=== PATIENT | male | born 1970 | race Caucasian/White ===

== ENCOUNTER 2020-02-11 20:32 | Inpatient (IN) | payer OTHER ==
[~2020-02-11] VITALS: Ht 180.3 cm; Wt 67.8 kg
[2020-02-11 21:21] LABS: HEMATOCRIT 35.9 % (42.0-52.0); HEMOGLOBIN 11.8 g/dl (13.5-17.5); MEAN CORPUSCULAR HEMOGLOBIN 32.3 pg (27.0-33.0); MEAN CORPUSCULAR HGB CONC 32.9 g/dl (32.0-36.5); MEAN CORPUSCULAR VOLUME 98.4 fl (80.0-96.0); PLATELET COUNT, AUTOMATED 143 10^3/uL (150-450); RED BLOOD COUNT 3.65 10^6/uL (4.30-6.10); WHITE BLOOD COUNT 12.3 10^3/uL (4.0-10.0)
[2020-02-11] MEDS ORDERED: ONDANSETRON 4MG/2ML VIAL IV PRN (21:45)
[2020-02-11] MEDS ORDERED: MORPHINE 2 MG/ML 1ML VIAL (J2270) IV PRN (21:45)
[2020-02-11] MEDS ORDERED: MOM 30ML SUSPENSION UDC PO PRN (21:45)
[2020-02-11] MEDS ORDERED: ACETAMINOPHEN TAB 650MG DOSE (2X325MG) PO PRN (21:45)
[2020-02-11] MEDS ORDERED: BISACODYL 10 MG SUPP PR PRN (21:45)
[2020-02-11 21:46] LABS: ALBUMIN 2.9 GM/DL (3.2-5.2); ALT/SGPT 100 U/L (12-78); BILIRUBIN,TOTAL 0.6 MG/DL (0.2-1.0); BLOOD UREA NITROGEN 19 MG/DL (7-18); CALCIUM LEVEL 8.5 MG/DL (8.5-10.1); CARBON DIOXIDE LEVEL 25 MEQ/L (21-32); CHLORIDE LEVEL 104 MEQ/L (98-107); CREATININE FOR GFR 1.07 MG/DL (0.70-1.30); GLOMERULAR FILTRATION RATE > 60.0 (>56); GLUCOSE, FASTING 88 MG/DL (70-100); POTASSIUM SERUM 3.9 MEQ/L (3.5-5.1); SODIUM LEVEL 132 MEQ/L (136-145); TOTAL PROTEIN 6.2 GM/DL (6.4-8.2)
--- NOTE | 2020-02-11 21:47 | REPVR ---
PROCEDURE INFORMATION: Exam: XR Right Hand Exam date and time: 02/11/2020 9:03 PM Age: 50 years old Clinical indication: Pain; Hand; Right; Additional info: Swelling TECHNIQUE: Imaging protocol: XR Right hand. Views: 3 or more views. COMPARISON: No relevant prior studies available. FINDINGS: Bones/joints: No fracture or bone lesions. Joint spaces are unremarkable. Soft tissues: Generalized soft tissue swelling in the hand. No subcutaneous gas is seen. Nonspecific calcifications are noted in the soft tissues adjacent to the little finger metacarpal. IMPRESSION: 1. Soft tissue swelling of uncertain etiology. Nonspecific calcifications in the medial hand adjacent to the 5th metacarpal. 2. No fracture or malalignment. Electronically signed by: Carmine Ovalle On 02/11/2020 21:47:31 PM
--- NOTE | 2020-02-11 21:48 | REPVR ---
PROCEDURE INFORMATION: Exam: XR Right Forearm Exam date and time: 02/11/2020 9:03 PM Age: 50 years old Clinical indication: Injury or trauma; Swelling (edema); Arm, upper and hand; Right TECHNIQUE: Imaging protocol: XR Right forearm. Views: 2 views. COMPARISON: No relevant prior studies available. FINDINGS: Bones/joints: Normal. Soft tissues: Mild soft tissue swelling in the forearm and hand. No subcutaneous gas or foreign bodies. Nonspecific soft tissue calcifications in the hand adjacent to the 5th metacarpal. IMPRESSION: 1. No fracture or malalignment. 2. Nonspecific soft tissue swelling in the hand and forearm. Electronically signed by: Carmine Ovalle On 02/11/2020 21:48:48 PM
[2020-02-11] MEDS ORDERED: LIDOCAINE 2% 100MG/5ML SDV (FOR ANES.) As Ordered ONE (22:00)
[2020-02-11] MEDS ORDERED: propofoL 200 MG/20 ML VIAL As Ordered ONE (22:00)
[2020-02-11] MEDS ORDERED: fentaNYL 100 MCG/2 ML INJECTION (J3010) As Ordered ONE (22:00)
[2020-02-11] MEDS ORDERED: dexameTHASONE 4 MG/ML 1ML VIAL (J1100 PER 1MG) As Ordered ONE (22:01)
[2020-02-11] MEDS ORDERED: MIDAZOLAM INJ 2MG/2ML VIAL (J2250 PER 1MG) As Ordered ONE (22:01)
[2020-02-11] MEDS ORDERED: ONDANSETRON 4MG/2ML VIAL As Ordered ONE (22:01)
[2020-02-11] MEDS ORDERED: ACET-897 PO (22:09)
[2020-02-11 22:11] LABS: ERYTHROCYTE SEDIMENTATION RATE 37 mm/hr (0-20)
--- NOTE | 2020-02-11 22:20 | CR.PDOC ---
General Date of Consultation: Feb 11, 2020 Consultation Chief complaint: Presented to the ER with right arm pain History of present illness: Patient is a 50 year old male with a PMHx of Bipolar disorder / Insomnia, Recent IVDA who presented to the ER with R forearm pain. He reported that he has been abstinent of any drug use for the last 8 years. However, 2 days ago had injected IV MDMA into his arm. Patient reported that he did inject into a vein. . He reported that there was swelling instantly and 1 day after began to have redness, blistering and fevers and chills. Patient reported that his fever was as high as 103 Fahrenheit. Yesterday. Patient had lost the ability to move his fingers and lost sensation from his elbow down. Patient denies any headache, nausea, vomiting, chest pain, shortness breath, palpitations, abdominal pain consultation, diarrhea, or urinary discomfort. Past Medical History: Bipolar disorder / Insomnia, Recent IVDA Past Surgical History: Broken jaw approximately 20 years ago that was wired shut Allergies: See below Medications: See below Family History: - Reviewed and noncontributory Social History: - Patient reports that he is a smoker of 30 years at one [facility], patient uses a lcohol socially. 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 Review of Systems: 10 point review of systems complete, all negative otherwise stated in HPI Physical exam: - Vitals: BP [100/52], HR [84], RR [18], Sat [97%RA], Temp [99.5F] - General: Stenting of the side bed with his right arm above his head, does not appear to be in any distress, AAOx3 - HEENT: NC, AT, PERRLA - CVS: RRR, +S1S2, - Murmurs / rubs / gallops - Lungs: Fair air entry bilaterally, No appreciable wheezing / rales / rhonchi - Abdomen: Soft, Non-distended, Non-tender - Extremities: No lower extremity edema, No calf tenderness - Neuro: No focal motor or sensory deficit - Skin: R forearm with swelling, tense skin, erythema / warmth / blistering Labs: See below Imaging: XR R forearm 02/10: 1. No fracture or malalignment. 2. Nonspecific soft tissue swelling in the hand and forearm. XR R hand 02/10: 1. Soft tissue swelling of uncertain etiology. Nonspecific calcifications in the medial hand adjacent to the 5th metacarpal. 2. No fracture or malalignment. EKG: See below Assessment and Plan: Compartment syndrome / Cellulitis of R arm - likely 2/2 IVDA 2/2 MDMA - Patient presented to the ER with worsening right arm pain, after IV drug abuse 2 days prior - Patient is hemodynamically stable and afebrile - Physical reveals erythema, warmth, blistering and tense skin of his right forearm - Leukocytosis / Elevated CRP - Imaging noted above - Will check ESR / Lactic acid / Blood cultures / Procalcitonin - Orthopedic surgery has started vancomycin - Patient has been admitted to the orthopedic service for further management; will be taken to OR tonight IVDA / Fevers - Will check Blood cultures / ESR / CRP / Procalcitonin - Will check ECHO Macrocytic anemia - No evidence of bleeding - Will check B12 / Folate / Reticulocyte count Hyponatremia - likely 2/2 hypotonic etiology; possibly 2/2 hypovolemic etiology - Will check urine / serum osmolality, urine electrolytes - Will c/w IV fluid hydration - Repeat BMP at 2AM Transaminitis - Patient has a recent use of IVDA and a prior history of IVDA - Will check Hepatitis profile / HIV Bipolar disorder / Insomnia - Currently does not take any medications - Prior history of Risperidone / Trazadone use DVT prophylaxis - As per orthopedic surgery Vital Signs/I&O Vital Signs Date Time Temp Pulse Resp B/P (MAP) Pulse Ox O2 Delivery O2 Flow Rate FiO2 02/11/20 20:55 84 16 98 02/11/20 20:45 99.5 100/52 (68) Room Air Laboratory Data Labs 24H Laboratory Tests 2 02/11/20 21:00: Nucleated Red Blood Cells % (auto) 0.0, Erythrocyte Sedimentation Rate 37H, Anion Gap 3L, Glomerular Filtration Rate > 60.0, Calcium Level 8.5, Total Bilirubin 0.6, Aspartate Amino Transf (AST/SGOT) 95H, Alanine Aminotransferase (ALT/SGPT) 100H, Alkaline Phosphatase 71, C-Reactive Protein, Quantitative 15.40H, Total Protein 6.2L, Albumin 2.9L, Albumin/Globulin Ratio 0.9, Coronavirus (COVID-19)(PCR) NEGATIVE CBC/BMP Laboratory Tests 02/11/20 21:00 Microbiology Microbiology 02/11/20 Blood Culture, Received Pending Allergies Coded Allergies: Penicillins (Verified Allergy, Severe, 02/11/20) Home Medications Scheduled PRN Acetaminophen (Tylenol Extra Strength) 500 Mg Tablet, 1,000 MG PO Q6H PRN for PAIN / FEVER, (Reported) FRANTZ BRAVO MD Feb 11, 2020 22:20
[2020-02-11] MEDS ORDERED: ROCURONIUM BROMIDE 50 MG/5 ML VIAL As Ordered ONE (22:55)
[2020-02-11] MEDS ORDERED: VANCOMYCIN HCL 1,000 MG, VIAL MATE ADAPTER 1 EACH in D5W 250 ML IV ONE (23:00)
[2020-02-11] MEDS ORDERED: PHENYLephrine HCL 500 MCG/5 ML (100MCG/ML) SYRINGE (J2370) As Ordered ONE (23:08)
[2020-02-11] MEDS ORDERED: VANCOMYCIN 1000MG/20ML VIAL As Ordered ONE (23:11)
[2020-02-11 23:16] LABS: OSMOLALITY SERUM 277 MOSM/KG (275-295)
[2020-02-11 23:17] LABS: BASO % 0.2 % (0.0-1.0); EOS # 0.3 10^3/uL (0.0-0.5); EOS % 2.1 % (0.0-3.0); LYMPH # 1.5 10^3/uL (1.5-5.0); LYMPH % 11.6 % (24.0-44.0); MONO # 0.8 10^3/uL (0.0-0.8); MONO % 6.5 % (0.0-5.0); NEUTROPHILS # 10.2 10^3/uL (1.5-8.5); NEUTROPHILS % 79.1 % (36.0-66.0); WHITE BLOOD COUNT 12.9 10^3/uL (4.0-10.0)
[2020-02-11] MEDS ORDERED: HYDROmorphone HCL 2 MG/ML 1ML VIAL (J1170) As Ordered ONE (23:19)
[2020-02-11 23:29] LABS: THYROID STIMULATING HORMONE 0.873 uIU/ML (0.358-3.740)
[2020-02-12] VITALS (8 sets, daily range): BP systolic 100–115; BP diastolic 59–74
[2020-02-12] MEDS ORDERED: VANCOMYCIN HCL 500 MG in D5W MINI-BAG PLUS 100 ML IV ONE ×2
[2020-02-12] MEDS ORDERED: ACETAMINOPHEN 1000MG 100ML IV BTL (OFIRMEV) (J0131 PER 10MG) As Ordered ONE (00:10)
[2020-02-12] MEDS ORDERED: KETOROLAC 60MG 2ML VIAL As Ordered ONE (00:11)
[2020-02-12] MEDS ORDERED: NEOSTIGMINE 10MG/10ML VIAL (J2710 PER 0.5MG) As Ordered ONE (00:15)
[2020-02-12] MEDS ORDERED: GLYCOPYRROLATE INJ 0.2 MG/ML 2 ML VIAL As Ordered ONE (00:15)
[2020-02-12] MEDS ORDERED: VANCOMYCIN 500MG/10ML VIAL As Ordered ONE (00:19)
[2020-02-12] MEDS ORDERED: fentaNYL 100 MCG/2 ML INJECTION (J3010) As Ordered ONE (01:00)
[2020-02-12] MEDS ORDERED: fentaNYL 100 MCG/2 ML INJECTION (J3010) IV PRN (01:30)
[2020-02-12] MEDS ORDERED: ONDANSETRON 4MG/2ML VIAL IV PRN (01:30)
[2020-02-12] MEDS ORDERED: LR 1,000 ML IV SCH (01:30)
[2020-02-12] MEDS ORDERED: oxyCODONE 5MG TAB PO PRN (01:30)
[2020-02-12] MEDS ORDERED: HYDROMORPHONE HCL 0.5 MG/ 0.5 ML SYRINGE (J1170 PER 1) As Ordered ONE (01:33)
[2020-02-12] MEDS ORDERED: oxyCODONE 5MG TAB As Ordered ONE (01:33)
[2020-02-12] MEDS: HYDROMORPHONE HCL 0.5 MG/ 0.5 ML SYRINGE (J1170 PER 1) IV PRN ×2 (01:37→01:43)
[2020-02-12] MEDS: NS 1,000 ML IV SCH ×3 (02:25→04:59)
[2020-02-12 03:12] LABS: BLOOD UREA NITROGEN 18 MG/DL (7-18); CALCIUM LEVEL 7.8 MG/DL (8.5-10.1); CARBON DIOXIDE LEVEL 24 MEQ/L (21-32); CHLORIDE LEVEL 105 MEQ/L (98-107); CREATININE FOR GFR 0.93 MG/DL (0.70-1.30); GLOMERULAR FILTRATION RATE > 60.0 (>56); GLUCOSE, FASTING 136 MG/DL (70-100); POTASSIUM SERUM 4.2 MEQ/L (3.5-5.1); SODIUM LEVEL 135 MEQ/L (136-145)
[2020-02-12] MEDS: NORCO, ANEXSIA 5/325MG TABLET (HYDROcodone/ACETAMINOPHEN) PO PRN ×2 (05:00→11:00)
--- NOTE | 2020-02-12 08:08 | HPE ---
HISTORY AND PHYSICAL DATE OF ADMISSION: 02/11/2020 CHIEF COMPLAINT: Right hand and forearm swelling. HISTORY OF PRESENT ILLNESS: This 50-year-old male was injecting some MDMA/Yolis into his right hand about two days ago and now appeared he unfortunately broke up with his girlfriend. He has used IV drugs in the past, but apparently he says he was clean for many years prior to this. He has 10/10 pain to his right hand and forearm. There is swelling and redness there that is getting worse over time. He said he has diminished sensation throughout the entire hand. He has had fever, chills, and did get some shortness of breath when his hand was really bothering him. No chest pain or other symptoms. PAST MEDICAL HISTORY: Bipolar. MEDICATIONS: None. He was on risperidone, but he is not taking that now. ALLERGIES: PENICILLIN. PAST SURGICAL HISTORY: None. SOCIAL HISTORY: He lives in [place]. 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 He is right hand dominant. He smokes a pack of cigarettes a day. He does not use alcohol. PHYSICAL EXAMINATION: GENERAL: A 60-year-old man. He appears obviously uncomfortable. He is slightly unkempt. VITAL SIGNS: Reveal temperature 99.5, blood pressure 100/52, 97% on room air, pulse rate 84, respiratory rate 18. EXTREMITIES: He has obvious swelling to the right hand primarily severe swelling in the hand, as well as [id number] swelling of the forearm compartments. Compartments are extremely tight in the hand. [id number] tight in the forearm, especially on the volar side. There is redness and warmth moderately throughout the hand and forearm. There is definite pain on passive outstretch. He has moderately strong radial pulse. There is pain to palpation of the compartments both in the hand primarily on the dorsum of the hand, as well as the forearm. The elbow has full range of motion. Diminished sensation throughout the entire hand subjectively. No obvious other red, swollen, or hot joints. He appears quite uncomfortable. IMAGING: Radiographs were taken of the right hand AP, lateral, and two obliques. These show moderate soft tissue swelling and no fracture. Radiographs taken of the forearm AP and lateral. There does appear to be some soft tissue possibly swelling on the volar side of the forearm, but no fracture. LABORATORY DATA: Reveals CRP 15.4. WBC count 12.3. ESR 37. COVID is negative. ASSESSMENT: This 50-year-old man appears to have an acute compartment syndrome of his right hand and possibly the forearm due to intravenous (IV) injection drug use and likely infection and concomitant cellulitis. We discussed the pros, cons, risks, and benefits of an acute compartment forearm fasciotomy, as well as hand fasciotomies. The surgical risks include, but are not limited to infection, pain, damage to surrounding structures, neurovascular injury, need for skin grafting, anesthetic complications, blood clots, , and other risks, as well as the need for further surgery. The risks of not going ahead with surgery include, but are not limited to muscle damage, muscle necrosis, worsening or spreading of the infection, developing sepsis, as well as Volkmann contracture. He wished to go ahead with the surgery. Marked the right upper extremity and signed the consent form for surgery, as well as possible need for blood products, and I explained the pros, cons, risks, and benefits of that to him as well. I will admit him to the hospital, as well as ask the emergency department physician to obtain a stat medicine consult. I have made the operating room (OR) aware of the emergency nature of the case. The patient will remain n.p.o., and I have also gone ahead and ordered vancomycin intravenous (IV) and await the appropriate dose to be dosed by the pharmacy for treatment in case of infection, which tends to be a methicillin-resistant Staphylococcus aureus in this group.
[2020-02-12] MEDS ORDERED: NICOTINE 21MG/24HR 1 EA TRANSDERMAL TD SCH (09:00)
[2020-02-12] MEDS ORDERED: INFLUENZA QUADRIVALENT PF VACCINE 0.5ML SYRINGE IM ONE (09:00)
[2020-02-12 10:47] LABS: CORTISOL PM 10.5 UG/DL (3.1-16.7)
[2020-02-12 10:49] LABS: VITAMIN B12 LEVEL 412 PG/ML (247-911)
[2020-02-12 10:59] LABS: HEPATITIS B SURFACE ANTIGEN NEGATIVE (NEGATIVE)
[2020-02-12] MEDS ORDERED: VANCOMYCIN HCL 1,000 MG, VIAL MATE ADAPTER 1 EACH in D5W 250 ML IV SCH (11:00)
[2020-02-12 11:27] LABS: HEPATITIS B CORE ANTIBODY IGM NEGATIVE (NEGATIVE)
[2020-02-12 11:28] LABS: HIV 1&2 SCREEN CENTAUR NEGATIVE (NEGATIVE)
[2020-02-12 11:29] LABS: HEPATITIS A ANTIBODY IGM NEGATIVE (NEGATIVE)
[2020-02-12 11:33] LABS: HEPATITIS C VIRUS ABY INDEX > 11.0 INDEX (<0.8)
--- NOTE | 2020-02-12 14:28 | IPNPDOC ---
Text Note Date of Service The patient was seen on 02/12/20. NOTE Subjective: No any acute events overnight. Patient denies fever, chills, nausea, chest pain, palpitations, vomiting or dysuria Objective: GENERAL APPEARANCE: NAD HEENT: no scleral icterus, no JVD, EOMI CARDIOVASCULAR: S1S2 LUNGS: CTA ABDOMEN: soft & not tender w palpitation MUSCULOSKELETAL: Right forearm covered with dressing INTEGUMENT: no generalized palor NEUROLOGICAL: cranial nerve function from 2-12 intact intact, follows commands, speech not dysarthric Assessment and plan This 50-year-old man with past medical history of IV drug abuse and bipolar disorder presented to the hospital with acute compartment syndrome of his right hand and possibly the forearm due to intravenous (IV) injection drug use and likely infection and concomitant cellulitis. Dr Thakur performed acute compartment forearm fasciotomy and hand fasciotomies Assessment and Plan: Compartment syndrome / Cellulitis of R arm - likely 2/2 IVDA 2/2 MDMA forearm fasciotomy and hand fasciotomies was done on 02/12/20 Await blood culture, wound culture Continue vancomycin normocytic anemia Most likely secondary to anemia of chronic diseases B12, folate within normal limit Patient need workup in the outpatient settings Hyponatremia Resolved Transaminitis Most likely secondary to hepatitis C untreated Follow-up with ID in the outpatient settings Bipolar disorder / Insomnia Follow-up with psychiatrist in the outpatient settings VSKadeem, I+O VSKadeem, I+O Laboratory Tests 02/11/20 21:00 02/11/20 22:30 02/12/20 01:55 Vital Signs Date Time Temp Pulse Resp B/P (MAP) Pulse Ox O2 Delivery O2 Flow Rate FiO2 02/12/20 11:45 16 02/12/20 06:00 98.6 75 100/59 (73) 98 Room Air 02/12/20 01:05 3 I&O- Last 24 Hours up to 6 AM 02/12/20 05:59 Intake Total 1520 ml Balance 1520 ml MARIA T LESTER DO Feb 12, 2020 14:28
--- NOTE | 2020-02-12 15:56 | RO ---
OPERATIVE NOTE DATE OF OPERATION: 02/12/2020 PREOPERATIVE DIAGNOSIS: Right hand and forearm compartment syndrome. POSTOPERATIVE DIAGNOSIS: Right hand and forearm compartment syndrome. PLANNED PROCEDURE: Right hand and forearm fasciotomies and irrigation and debridement. PROCEDURE PERFORMED: Right hand and forearm fasciotomies and irrigation and debridement. SURGEON: Az Thakur MD ANESTHESIOLOGIST: Dr. Davis CLOSING COORDINATOR: None. ANESTHESIA: General anesthetic. OPERATIVE PREAMBLE: This is a 60-year-old man who injected IV drugs into his right hand two days ago. He presented with swelling and extreme pain to his right hand and forearm as well as redness progressing over time. He had an elevated white count and inflammatory markers. After discussing pros, cons, risks and benefits of surgery, he decided to go ahead with irrigation and debridement as well as forearm and hand fasciotomies given his acutely concerning history and physical exam findings. PROCEDURE NOTE: The patient was brought to the operating theater. He was administered general anesthetic. He was administered intravenous vancomycin both for treatment as well as surgical prophylaxis of infection. The limb was prepped and draped in the usual sterile fashion, allowing over three minutes prep solution drying time prior to draping. Chlorhexidine based prep solution was employed. A preoperative timeout was performed, confirming the site, the patient, and surgery. The bed was turned 90 degrees. A tourniquet was used on the patient's upper extremity. All bony prominences were appropriately padded. We began by elevating the limb and inflating the tourniquet to 250 mmHg. I made two standard longitudinal incisions centered around the dorsum of the hand between the subcutaneous border of the metacarpals longitudinally. We carried dissection down through skin and subcutaneous tissue, achieving meticulous hemostasis. I performed a fasciotomy compartmental base of all the muscles of the interosseous muscles of the hand through the plantar. There was no obvious pus collection although there was some minor amounts of fluid and murky tissue slightly off-white leyva appearing in that area. Wound swabs were taken and sent for gram stain, C&S, aerobes, anaerobes and cultures of ____. I thoroughly decompressed the tissue from the dorsum of the wrist and towards the thumb as well. There was one area in the radial styloid that appears to be more superficial ____ was decompressed as well and no obvious pocket of pus or fluid collection. I then turned my attention to the volar forearm. I performed a fasciotomy including a carpal tunnel release through a standard volar approach through the long standard longitudinal incision, curvilinear, ensuring a soft tissue swath to cover the flexor tendons, the median nerve as well as towards the proximal medial aspect of the forearm near the lacertus fibrosus. Again near the distal radial side of the incision, there was again some slightly off-white grayish tissue that was gently debrided. The radial artery was kept intact throughout the case. Superficial and deep fasciotomy was performed. Forearm bumps were soft as well as the hand compartments. In addition, the hand compartments of the thenar heads and thenar eminence were also soft after performing the fasciotomies. I then thoroughly irrigated with six liters of normal saline with a gentle debridement. No obvious muscle was found. Proximal and distal ends of the volar forearm fasciotomy incision were closed using interrupted 2-0 Vicryl sutures and 3-0 Ethilon in a horizontal mattress fashion. These were each closed for a length of approximately 1-1/2 inches. A large majority of the incisions were left open and a vacuum dressing placed with appropriate suction with 25 mm low continuous suction applied with ensuring the ___ dressing was not overlapping on the dorsum of the forearm. Dorsal hand wounds were left open with wet-to-dry dressing to allow it to drain. The tourniquet was taken down prior to the end of the case to confirm meticulous hemostasis. Drapes were removed. The patient was woken up from his anesthetic, transferred off the operating table and taken to the postanesthetic care unit in stable condition. All sponge, needle, and instrument counts were correct. Estimated blood loss: 50 cc. No complications. Plan for the patient is to be admitted to the hospital for hospitalist consult and consult for infectious disease, follow up on the cultures, daily blood work, follow the inflammatory markers to ensure he has appropriate response to the antibiotics. The patient will likely need to return to the OR in 2-3 days for definitive wound closure versus plastic surgery consult for a split-thickness skin graft although in my opinion, I think that this will allow for delayed primary closure rather than skin grafting. ____ admitted to the hospital.
--- NOTE | 2020-02-12 17:06 | CR ---
Infectious Disease CONSULTATION Asked to consult by orthopedic surgery for evaluation of right hand abscess with compartment syndrome of the right forearm. HPI: Patient is a 50-year-old gentleman with a history of intravenous (IV) drug use who recently injected about 4 days prior to admission Yolis into his right hand. The patient said he broke up with his girlfriend, who stayed in [place], where they had been for the past year, and he moved back to [place], [place]. He is staying in a motel with his sister. The patient reported that he injected in his right hand and developed severe swelling with fever up to 103.4 and chills. He has blistering lesions on the hand. He denies any nausea, vomiting, diarrhea, chest pain, shortness of breath, palpitations. He is sure that whoever sold him the drug, that he had it tainted with something so he could kill him. He wants me to check his urine drug screen for any illegal drugs that could be possibly there. MEDICAL HISTORY: Significant for: 1. Bipolar disorder with insomnia. 2. IV drug abuse. He had been abstinent for about 8 years until this past week. 3. Chronic hepatitis C diagnosed in 2005 or 2006 while he was in nursing home. He was never treated, because he stated that it was too expensive. Vaccinated for HepA/B SURGICAL HISTORY: Broken jaw 20 years ago. SOCIAL HISTORY: He is a smoker, 30 pack-year. Uses alcohol socially. He used to drink heavily. History of IV Yolis use, marijuana. He was in [place] and recently moved back. He has a girlfriend who now is in [place]. LABORATORY DATA: White count 12.9, hemoglobin 11.8, hematocrit 35.9, platelets 143, 74% neutrophils, 7% lymphocytes, 6% monocytes. ESR 37. Sodium 135, potassium 4.2, chloride 105, bicarbonate 24, BUN 18, creatinine 0.93, glucose 136, calcium 7.8. AST 95, ALT 100, alkaline phosphatase 71. CRP 15.4. Total protein 6.2, albumin 2.9. Vitamin B12 of 412. Folate 12. Procalcitonin 1.39. TSH 0.873. Cortisol 10.5. HIV negative. Hepatitis C positive. Hepatitis A negative. Hepatitis B surface antigen negative. B core IgM negative. Microbiology: Blood culture was not done. Right arm Gram stain: No growth. No cells seen. A few gram-positive rods. Culture are still pending, aerobic and anaerobic. ALLERGIES: PENICILLIN. MEDICATIONS: - vancomycin 1 gram IV every 12 hours - nicotine patch daily - Zofran as needed 4 mg every 6 - Tylenol as needed - morphine 2 mg IV every 4 as needed - [place] one tablet by mouth every 6 as needed IMAGING: Hand x-ray done on February 10 shows soft tissue swelling of uncertain etiology with nonspecific calcification in the medial hand adjacent to the 5th metacarpal. PHYSICAL EXAMINATION: A healthy looking gentleman in no acute distress. HEART: Normal S1, S2. No murmurs, rubs, or gallops appreciated. LUNGS: Clear. No wheezes, rales, rhonchi. ABDOMEN: Soft, nontender. No hepatosplenomegaly. BACK: No cerebrovascular accident (CVA) or lumbosacral tenderness. EXTREMITIES: No clubbing, cyanosis, or edema. SKIN: Multiple tattoos all over his body. Blue dye discoloration on his fingers. 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 MUSCULOSKELETAL: Right hand with two vertical scars on the dorsal aspect of the hand that are clean with no purulent discharge. Wound vacuum-assisted closure (VAC) along the right forearm. Incision done for concern of compartment syndrome. Fasciotomy incision. Per review of Dr. Thakur's surgical note, there was no obvious purulence intraoperatively. There was a minor amount of milky tissue, leyva appearing along the muscles. IMPRESSION: A 50-year-old gentleman with a history of IV drug use, chronic hepatitis C, untreated, who was admitted with right hand abscess with concern of compartment syndrome. The patient had an I and D done. Cultures are still pending. Gram stain shows gram-positive rods. Patient is allergic to penicillin. He has been treated with vancomycin, which would cover gram-positive rods. The most common cause for those infections are Staphylococcus aureus or possibly polymicrobial. PLAN: 1-Continue with IV vancomycin. Patient has clinically improved. He is afebrile. Will monitor his culture results and decide on de-escalation depending on culture results. Continue with wound VAC. Will discuss the case with Dr. Thakur tomorrow. 2- As far as hepatitis C is concerned, he can be treated as an outpatient once he remains abstinent of alcohol and drugs. He has been vaccinated for hepatitis A and B while in nursing home MTDD
--- NOTE | 2020-02-13 07:05 | ECHO ---
DATE OF PROCEDURE: 02/12/2020 Age: 50 Gender: Male Height: 180 cm Weight: 68 kg REFERRING PHYSICIANS: Az Thakur MD and Seda Hill M.D. INDICATION: Sepsis. MEASUREMENTS: IVS 0.6 cm LV 5.4 cm LVPW 1.0 cm LA 3.0 cm Aorta 3.3 cm RV 3.4 cm IVC 1.8 cm Mitral E wave velocity 75 cm/s Mitral A wave 50.1 cm/s E prime septal 12.2 cm/s E prime lateral 14.6 cm/s FINDINGS: This study is of excellent technical quality. Underlying sinus rhythm. Left ventricle is normal size and normal systolic function, I estimate overall LVEF around 50% to 55%. No segmental wall motion abnormalities are noted. Right ventricle is also normal size and systolic function. Both atria appear normal. Aorta, tricuspid, and pulmonic valves were all well seen and appear normal. Mitral valve has two leaflets, which have normal structure. There is a loose cord attached to the anterior mitral leaflet. It was well visualized and it is unlikely to represent vegetation. No pericardial effusion is noted. Inferior vena cava is normal size. Aortic root and aortic arch appear normal. Abdominal aorta was also reasonably well seen and appeared normal. Doppler interrogation reveals competent aortic valve. There is trace mitral and trace tricuspid insufficiency. Pulmonic valve is competent. Estimated pulmonary artery pressure is around 25 mmHg corresponding to normal values. Mitral inflow pattern and tissue Doppler imaging of mitral annulus revealed a normal diastolic function. CONCLUSIONS: 1. Study is of excellent technical quality, underlying sinus rhythm. 2. Normal left ventricular (LV) size with low normal left ventricular (LV) systolic function and normal diastolic function. 3. Normal aortic, tricuspid, and pulmonic valves. 4. Echo density attached to anterior mitral leaflet, which very likely represents a loose cord, unlikely representing vegetation. Trace mitral insufficiency. 5. Normal central venous pressure and normal pulmonary artery pressure. COMMENTS: If very high clinical suspicion for endocarditis, a transesophageal echocardiogram is going to provide better visualization. [facility]
== END 2020-02-12 22:20 | disposition left against medical advice (07) | DRG 316 ==
LOC: M ED 20:32 → M ED INP 21:44 → M MS5PR 02-12 02:00
PROVIDERS: ADMIT Orthopaedic Surgery Sports Medicine; ATTEND Orthopaedic Surgery Sports Medicine
PROC: 0KN90ZZ Release Right Lower Arm and Wrist Muscle, Open Approach (ICD-10-PCS; principal; 2020-02-12)
PROC: 0KNC0ZZ Release Right Hand Muscle, Open Approach (ICD-10-PCS; 2020-02-12)
DX: M79.A11 Nontraumatic compartment syndrome of right upper extremity (principal); E87.1 Hypo-osmolality and hyponatremia; L03.115 Cellulitis of right lower limb; D64.9 Anemia, unspecified; R74.01 Elevation of levels of liver transaminase levels; B18.2 Chronic viral hepatitis C; D63.8 Anemia in other chronic diseases classified elsewhere; F17.210 Nicotine dependence, cigarettes, uncomplicated; F31.9 Bipolar disorder, unspecified; G47.00 Insomnia, unspecified; Z88.0 Allergy status to penicillin; Z20.828 Contact with and (suspected) exposure to other viral communicable diseases

== ENCOUNTER 2020-02-13 00:39 | Inpatient (IN) | payer OTHER ==
[~2020-02-13] VITALS: Ht 180.3 cm; Wt 68.0 kg
[~2020-02-13 00:39] MED LIST: ACET-897 PO
[2020-02-13] MEDS ORDERED: ACETAMINOPHEN TAB 650MG DOSE (2X325MG) PO PRN (02:45)
--- NOTE | 2020-02-13 02:56 | HPEPDOC ---
[facility] Medical History & Physical Date of Admission Feb 13, 2020 Date of Service: Feb 13, 2020 History and Physical Chief complaint: Presented to back to the ER on 02/11 after he had left the hospital that evening Had initially presented to the ER with right arm pain on 02/11/2020 History of present illness: Patient is a 50 year old male with a PMHx of Bipolar disorder / Insomnia, Recent IVDA who presented to the back to the ER for ongoing care of his R forearm. Patient had eloped from the hospital without informing staff and a code was called. Security had reported the patient had left the building with IV line in place. Police were called to evaluate patient during his recent IV drug abuse and IV line in place. Patient was found at [facility] looking for his girlfriend and was brought back to the emergency room. Patient denies any drug use since he has left the hospital. Patient reported that he had left the hospital to find his girlfriend, but was unsuccessful; but did speak with his sister. Patient was admitted on 02/10 for compartment syndrome of his right forearm after he had injected IV drugs (MDMA) into his right forearm on 02/08. Patient had received emergent right hand and forearm fasciotomies and irrigation and debridement with Dr. Thakur on the morning of 02/11. Currently patient denies any headache, nausea, vomiting, chest pain, shortness breath, palpitations, abdominal pain consultation, diarrhea, or urinary discomfort Past Medical History: Bipolar disorder / Insomnia, Recent IVDA Past Surgical History: Broken jaw approximately 20 years ago that was wired shut Allergies: See below Medications: See below Family History: - Reviewed and noncontributory Social History: - Patient reports that he is a smoker of 30 years at one [facility], patient uses alcohol socially. 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 Review of Systems: 10 point review of systems complete, all negative otherwise stated in HPI Physical exam: - Vitals: BP [114/62], HR [60], RR [14], Sat [98%RA], Temp [98.1F] - General: Lying in bed, No acute distress, Speaking in full sentences, AAOx3 - HEENT: NC, AT, PERRLA - CVS: RRR, +S1S2 - Lungs: Fair air entry bilaterally, No appreciable wheezing / rales / rhonchi - Abdomen: Soft, Non-distended, Non-tender - Extremities: R forearm with dressing in place, No lower extremity edema, No calf tenderness - Neuro: Patient is able to move his fingers of his R hand and reports improved sensation - Skin: Slight erythema of R forearm still present Labs: See below Imaging: See below EKG: See below Assessment and Plan: Compartment syndrome / Cellulitis of R arm - likely 2/2 IVDA 2/2 MDMA - s/p right hand and forearm fasciotomies with irrigation and debridement (02/11) with Dr. Thakur - Patient reports improvement of his right hand motion and sensation - Maintenance hemodynamically stable and afebrile - Will admit to hospitalist service; will consult ID and Orthopedic services - Blood cultures 02/10: No growth at 24 hours; Wound culture 02/11: Pending - Will repeat CBC / CMP / Lactic acid / Procalcitonin - Will resume Vancomycin - Will continue with wound vac on R forearm IVDA / Fevers - ECHO complete; report pending Macrocytic anemia - No evidence of bleeding - Vitamin B12 / Folate noted Hyponatremia - likely 2/2 hypotonic etiology; possibly 2/2 hypovolemic etiology - s/p IV fluid hydration - Will repeat labs Transaminitis - likely 2/2 hepatitis C - Patient has a recent use of IVDA and a prior history of IVDA - Will have outpatient follow up with ID Nicotine dependence - Will start Nicotine patch Bipolar disorder / Insomnia - Currently does not take any medications - Prior history of Risperidone / Trazadone use DVT prophylaxis - Will start TEDs/Sequentials Vital Signs Vital Signs Date Time Temp Pulse Resp B/P (MAP) Pulse Ox O2 Delivery O2 Flow Rate FiO2 02/13/20 02:15 60 14 114/62 (79) 98 Room Air 02/13/20 00:49 98.1 Laboratory Data Labs 24H Laboratory Tests 2 02/13/20 01:40: Coronavirus (COVID-19)(PCR) NEGATIVE Home Medications No Active Prescriptions or Reported Meds Allergies Coded Allergies: Penicillins (Verified Allergy, Severe, 02/11/20) FRANTZ BRAVO MD Feb 13, 2020 02:56
[2020-02-13] MEDS ORDERED: MOM 30ML SUSPENSION UDC PO PRN (03:00)
[2020-02-13] MEDS ORDERED: SENOKOT S TAB PO PRN (03:00)
[2020-02-13] MEDS ORDERED: NICOTINE 21MG/24HR 1 EA TRANSDERMAL TD ONE (03:00)
[2020-02-13 03:16] LABS: HEMATOCRIT 33.5 % (42.0-52.0); HEMOGLOBIN 10.8 g/dl (13.5-17.5); MEAN CORPUSCULAR HEMOGLOBIN 32.3 pg (27.0-33.0); MEAN CORPUSCULAR HGB CONC 32.2 g/dl (32.0-36.5); MEAN CORPUSCULAR VOLUME 100.3 fl (80.0-96.0); PLATELET COUNT, AUTOMATED 125 10^3/uL (150-450); RED BLOOD COUNT 3.34 10^6/uL (4.30-6.10); WHITE BLOOD COUNT 8.2 10^3/uL (4.0-10.0)
[2020-02-13 03:20] VITALS: BP 114/63
[2020-02-13] MEDS ORDERED: MORPHINE 2 MG/ML 1ML VIAL (J2270) IV ONE (04:00)
[2020-02-13 04:09] LABS: ALBUMIN 2.5 GM/DL (3.2-5.2); ALT/SGPT 84 U/L (12-78); BILIRUBIN,TOTAL 0.1 MG/DL (0.2-1.0); BLOOD UREA NITROGEN 16 MG/DL (7-18); CARBON DIOXIDE LEVEL 29 MEQ/L (21-32); CHLORIDE LEVEL 108 MEQ/L (98-107); CREATININE FOR GFR 0.77 MG/DL (0.70-1.30); GLOMERULAR FILTRATION RATE > 60.0 (>56); GLUCOSE, FASTING 115 MG/DL (70-100); POTASSIUM SERUM 3.5 MEQ/L (3.5-5.1); SODIUM LEVEL 139 MEQ/L (136-145)
[2020-02-13] MEDS: VANCOMYCIN HCL 1,000 MG, VIAL MATE ADAPTER 1 EACH in D5W 250 ML IV SCH ×3 (04:43→20:20)
[2020-02-13 06:00] VITALS: BP 118/61
[2020-02-13] MEDS ORDERED: MORPHINE 15 MG SA TAB PO ONE (06:15)
[2020-02-13] MEDS: PERCOCET 5MG/325MG TAB PO PRN ×3 (06:50→23:44)
[2020-02-13] MEDS ORDERED: LORazepam 2 MG/ML VIAL IV ONE (07:45)
[2020-02-13] MEDS ORDERED: OLANZapine 5 MG TAB PO PRN (13:45)
[2020-02-13 14:00] VITALS: BP 119/62
[2020-02-13] MEDS ORDERED: LORazepam 2 MG/ML VIAL IV PRN (14:00)
--- NOTE | 2020-02-13 14:27 | IPNPDOC ---
Text Note Date of Service The patient was seen on 02/13/20. NOTE Subjective: Patient left the facility overnight AGAINST MEDICAL ADVICE and came back a few hours. In the morning patient was agree to stay in the hospital and get treatment. Objective: GENERAL APPEARANCE: NAD HEENT: no scleral icterus, no JVD, EOMI CARDIOVASCULAR: S1S2 LUNGS: CTA ABDOMEN: soft & not tender w palpitation MUSCULOSKELETAL: no cyanosis, no swelling, wound vac in place, R forearm with dressing in place INTEGUMENT: no generalized palor NEUROLOGICAL: cranial nerve function from 2-12 intact intact, follows commands, speech not dysarthric Psych: Patient has some racing thoughts and pressured speech. Assessment and plan Patient is 50 years old male with past medical history of Bipolar disorder / Insomnia, Recent IVDA who presented to the back to the ER for ongoing care of his R forearm. Patient was admitted on 02/10 for compartment syndrome of his right forearm after he had injected IV drugs (MDMA) into his right forearm on 02/08. Patient had received emergent right hand and forearm fasciotomies and irrigation and debridement with Dr. Thakur on the morning of 02/11. Compartment syndrome / Cellulitis of R arm - likely 04/13 IVDA 04/13 MDMA Blood culture negative Await wound culture Continue vancomycin continue with wound vac on R forearm IVDA / Fevers Await echo report Bipolar disorder Appreciate/agree with psychiatrist consult. Dr. Stack recommended olanzapine 3 times a day when necessary for agitation Hyponatremia Resolved Transaminitis Secondary to hepatitis C Follow-up with ID for possible treatment Nicotine dependence Nicotine patch VS,Fishbone, I+O VS, Fishbone, I+O Laboratory Tests 02/13/20 02:44 Vital Signs Date Time Temp Pulse Resp B/P (MAP) Pulse Ox O2 Delivery O2 Flow Rate FiO2 02/13/20 07:39 20 02/13/20 06:50 99.2 02/13/20 06:00 74 118/61 (80) 94 Room Air I&O- Last 24 Hours up to 6 AM 02/13/20 06:00 Intake Total 0 ml Output Total 0 ml Balance 0 ml MARIA T LESTER DO Feb 13, 2020 14:27
--- NOTE | 2020-02-13 17:31 | IPN ---
PROGRESS NOTE DATE: 02/13/2020 Teo is doing well. He left yesterday against medical advice. Went to [place] and came back after he had removed his wound vacuum-assisted closure (VAC). The patient wanted to see if his significant other had come back from [place]. She did not come back, and the patient came back to get his care. This morning he was seen by Dr. Thakur, who is planning to take him back to the operating room (OR) on Sunday or Sunday for closure of the forearm wound. Temperature was 100.2 this morning, currently 99.2, pulse 74, respirations 22, blood pressure 118/61, oxygen saturation 94% on room air. HEART: Normal S1, S2. No murmurs. LUNGS: Clear. No wheezes, rhonchi or rales. ABDOMEN: Soft, nontender LABORATORY DATA: White count 8.2, hemoglobin 10.8, hematocrit 33.5, platelets 125. Sodium 139, potassium 3.5, chloride 108, bicarbonate 29, BUN 16, creatinine 0.77, glucose 115. AST 62, ALT 84, total protein 6, albumin 2.5, and procalcitonin 0.57. Wound cultures, aerobic and anaerobic, are still pending. Blood cultures from February 10 were negative. Hepatitis C antibody was more than 11. SARS-CoV-2 was done on February 10 and February 12 and were negative. HIV negative. Hepatitis C RNA pending. On physical exam, right hand swelling has diminished. The wound VAC was not removed at the request of Dr. Thakur. He has good range of motion. Swelling in the forearm has decreased. IMPRESSION: 1. Right hand abscess. Culture is still pending with concern of compartment syndrome. The swelling has markedly decreased after fasciotomy. On intravenous (IV) vancomycin. 2. History of IV drug use, methamphetamine. 3. Chronic hepatitis C, not treated. Patient has been vaccinated for hepatitis A and B. AST and ALT less than two times upper limit of normal. PLAN: Continue with IV vancomycin. Call me with results of cultures when available to de-escalate therapy. Will treat him as an outpatient for hepatitis C. I agree with closure of the forearm wound once patient's swelling has decreased.
[2020-02-13] MEDS ORDERED: guaiFENesin DM LIQ 10ML UD PO PRN (18:30)
[2020-02-13 22:00] VITALS: BP 124/63
[2020-02-13] MEDS ORDERED: VANCOMYCIN HCL 750 MG, VIAL MATE ADAPTER 1 EACH in D5W 250 ML IV ONE (22:00)
[2020-02-14] MEDS: VANCOMYCIN HCL 1,000 MG, VIAL MATE ADAPTER 1 EACH in D5W 250 ML IV SCH ×3 (03:01→20:12)
[2020-02-14] MEDS: PERCOCET 5MG/325MG TAB PO PRN ×3 (05:33→20:12)
[2020-02-14 06:00] VITALS: BP 144/67
[2020-02-14 07:16] LABS: BLOOD UREA NITROGEN 8 MG/DL (7-18); CALCIUM LEVEL 7.8 MG/DL (8.5-10.1); CARBON DIOXIDE LEVEL 22 MEQ/L (21-32); CHLORIDE LEVEL 107 MEQ/L (98-107); CREATININE FOR GFR 0.61 MG/DL (0.70-1.30); GLOMERULAR FILTRATION RATE > 60.0 (>56); GLUCOSE, FASTING 95 MG/DL (70-100); MAGNESIUM LEVEL 1.6 MG/DL (1.8-2.4); POTASSIUM SERUM 4.3 MEQ/L (3.5-5.1); SODIUM LEVEL 136 MEQ/L (136-145)
[2020-02-14 08:34] LABS: BASO % 0.3 % (0.0-1.0); EOS # 0.6 10^3/uL (0.0-0.5); EOS % 9.7 % (0.0-3.0); HEMATOCRIT 34.9 % (42.0-52.0); HEMOGLOBIN 11.4 g/dl (13.5-17.5); LYMPH # 1.4 10^3/uL (1.5-5.0); LYMPH % 22.1 % (24.0-44.0); MEAN CORPUSCULAR HEMOGLOBIN 32.8 pg (27.0-33.0); MEAN CORPUSCULAR HGB CONC 32.7 g/dl (32.0-36.5); MEAN CORPUSCULAR VOLUME 100.3 fl (80.0-96.0); MONO # 0.7 10^3/uL (0.0-0.8); MONO % 10.5 % (0.0-5.0); NEUTROPHILS # 3.6 10^3/uL (1.5-8.5); NEUTROPHILS % 56.8 % (36.0-66.0); PLATELET COUNT, AUTOMATED 181 10^3/uL (150-450); RED BLOOD COUNT 3.48 10^6/uL (4.30-6.10); WHITE BLOOD COUNT 6.3 10^3/uL (4.0-10.0)
--- NOTE | 2020-02-14 11:58 | MHCRPDOC ---
[facility] Consultation Consultation DATE OF CONSULTATION: 02/14/20 CONSULTATION REQUESTED BY: Dr. Chambers REASON FOR CONSULTATION: Bipolar disorder RELEVANT HISTORY: As per previous notes: "Patient is a 50 year old male with a PMHx of Bipolar disorder / Insomnia, Recent IVDA who presented to the back to the ER for ongoing care of his R forearm. Patient had eloped from the hospital without informing staff and a code was called. Security had report ed the patient had left the building with IV line in place. Police were called to evaluate patient during his recent IV drug abuse and IV line in place. Patient was found at [facility] looking for his girlfriend and was brought back to the emergency room. Patient denies any drug use since he has left the hospital. Patient reported that he had left the hospital to find his girlfriend, but was unsuccessful; but did speak with his sister. Patient was admitted on 02/10 for compartment syndrome of his right forearm after he had injected IV drugs (MDMA) into his right forearm on 02/08. Patient had received emergent right hand and forearm fasciotomies and irrigation and debridement with Dr. Thakur on the morning of 02/11. Currently patient denies any headache, nausea, vomiting, chest pain, shortness breath, palpitations, abdominal pain consultation, diarrhea, or urinary discomfort PAST PSYCHIATRIC HISTORY: patient says he has a h/o bipolar disorder and depression. He says he was hospitalized at [facility] Mental Health Unit for suicidal ideation. He says he didn't take his medications once he was discharged because he didn't have his Insurance card ???. He says he has taken Abilify and he didn't like it. He denies previous suicide attempts. PAST MEDICAL HISTORY: Compartment syndrome, IV drug abuse, Insomnia. Broken jaw, 20 years ago FAMILY HISTORY: Mother: Alive, has h/o cancer Father: , of a heart attack Siblings: One of them committed suicide by OD. Children: Has 7 children, keeps in touch with 2 of them PERSONAL AND SOCIAL HISTORY: The patient was born and raised in [place]. 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 Occasionally uses marijuana MENTAL STATUS EXAMINATION: Patient is a 50-year old male, who is alert, initially guarded, laying in bed, [place] [facility] gown. Speech is normal in r/v/t, spontaneous and fluent. Language skills are intact. Thought processes including: linear and coherent. Thought content: negative for SI/HI, positive for paranoid thoughts, negative for grandiose or bizarre delusions. Abstract reasoning, and computation: fair. Description of associations: intact. Description of abnormal or psychotic thoughts: Denies TAV hallucinations, denies thought delusions, denies SI/HI. He was not responding to internal stimuli Judgment: Limited. Insight: limited. Orientation to x 3. Recent and remote memory: intact. Attention span and concentration: good. Language: adequate. Fund of knowledge: average. Mood: euthymic. Affect: congruent with mood. DIAGNOSIS: 1. Substance induced mood disorder. PLAN: 1. He has accepted to start medications, I have discussed with him to start Depakote 250 mgs PO TID and Zyprexa 5 mgs PO BID. His LFT's were mildly elevated, so, I recommend to re test him before starting him on the medication because of the effect it has on the liver. 2. He is not a danger to himself or others at this time. he doesn't fulfill criteria for him to be transferred to [facility]. He needs help with his substance abuse problem but he says he was established in the past with mental health and he didn't follow up, most likely because of his substance abuse. He described how he feels when he is not on drugs and his symptoms were congruent with depression ( while not on drugs) but when he is on drugs, he is manic. He says that even when he was not on drugs, he felt paranoid and when he is on drugs, he feels more paranoid. he says he has been on drugs for a very long period of time. Vital Signs Vital Signs Date Time Temp Pulse Resp B/P (MAP) Pulse Ox O2 Delivery O2 Flow Rate FiO2 02/14/20 06:03 18 02/14/20 06:00 99.1 75 144/67 (92) 96 Room Air Laboratory Data 24H Labs Laboratory Tests 2 02/13/20 18:55: Vancomycin Level Trough 9.9L 02/14/20 06:13: Anion Gap 7L, Glomerular Filtration Rate > 60.0, Calcium Level 7.8L, Magnesium Level 1.6L 02/14/20 07:58: Immature Granulocyte % (Auto) 0.6, Neutrophils (%) (Auto) 56.8, Lymphocytes (%) (Auto) 22.1L, Monocytes (%) (Auto) 10.5H, Eosinophils (%) (Auto) 9.7H, Basophils (%) (Auto) 0.3, Neutrophils # (Auto) 3.6, Lymphocytes # (Auto) 1.4L, Monocytes # (Auto) 0.7, Eosinophils # (Auto) 0.6H, Basophils # (Auto) 0.0, Nucleated Red Blood Cells % (auto) 0.0 Home Medications Current Medications Current Medications Medications (Trade) Dose Ordered Sig/Mao Route PRN Reason Start Time Stop Time Status Last Admin Dose Admin Acetaminophen (Tylenol Tab) 650 mg Q4H PRN PO PAIN OR FEVER 02/13/20 02:45 Guaifenesin/ Dextromethorphan (Robitussin Dm) 10 ml Q6HP PRN PO COUGH 02/13/20 18:30 02/13/20 18:57 Home Med (Med Rec Complete!) ASDIRECTED XX 02/13/20 02:00 02/13/20 01:55 DC Lorazepam (Ativan) 0.5 mg Q6HP PRN IV AGITATION 02/13/20 14:00 Magnesium Hydroxide (Milk Of Magnesia) 30 ml BID PRN PO constipation 02/13/20 03:00 Olanzapine (ZyPREXA) 5 mg TID PRN PO AGITATION 02/13/20 13:45 Oxycodone/ Acetaminophen (Percocet 5mg/ 325mg Tablet) 1 tab Q6HP PRN PO MODERATE PAIN (PS 5-7) 02/13/20 03:00 02/14/20 05:33 Senna/Docusate Sodium (Senokot S) 2 tab BIDP PRN PO CONSTIPATION 02/13/20 03:00 Vancomycin HCl 1000 mg/IV Miscellaneous Supplies 1 each/ Dextrose 270 ml @ 270 mls/hr Q8H IV 02/13/20 04:00 02/14/20 03:01 No Active Prescriptions or Reported Meds Allergies Coded Allergies: Penicillins (Verified Allergy, Severe, 02/11/20) DION NAVARRETE MD Feb 14, 2020 11:38
--- NOTE | 2020-02-14 12:46 | IPNPDOC ---
Text Note Date of Service The patient was seen on 02/14/20. NOTE Subjective: No any acute events overnight. Patient continues to complain of r ight forearm pain, he stated 10 out of 10 Objective: GENERAL APPEARANCE: NAD HEENT: no scleral icterus, no JVD, EOMI CARDIOVASCULAR: S1S2 LUNGS: CTA ABDOMEN: soft & not tender w palpitation MUSCULOSKELETAL: no cyanosis, no swelling, wound vac in place, R forearm with dressing in place INTEGUMENT: no generalized palor NEUROLOGICAL: cranial nerve function from 2-12 intact intact, follows commands, speech not dysarthric Psych: Patient has some racing thoughts and pressured speech. Assessment and plan Patient is 50 years old male with past medical history of Bipolar disorder / Insomnia, Recent IVDA who presented to the back to the ER for ongoing care of his R forearm. Patient was admitted on 02/10 for compartment syndrome of his right forearm after he had injected IV drugs (MDMA) into his right forearm on 02/08. Patient had received emergent right hand and forearm fasciotomies and irrigation and debridement with Dr. Thakur on the morning of 02/11. Compartment syndrome / Cellulitis of R arm - likely 04/13 IVDA 04/13 MDMA Blood culture negative Await wound culture Continue vancomycin continue with wound vac on R forearm Pain management IVDA / Fevers Await echo report Bipolar disorder Dr. Stack recommended olanzapine 2 times a day. Patient is not psychotic Follow-up with psychiatrist in the outpatient settings Hyponatremia Resolved Transaminitis Secondary to hepatitis C Follow-up with ID for possible treatment Nicotine dependence Nicotine patch VS,Fishbone, I+O VS, Fishbone, I+O Laboratory Tests 02/14/20 06:13 02/14/20 07:58 Vital Signs Date Time Temp Pulse Resp B/P (MAP) Pulse Ox O2 Delivery O2 Flow Rate FiO2 02/14/20 11:43 18 02/14/20 06:00 99.1 75 144/67 (92) 96 Room Air I&O- Last 24 Hours up to 6 AM 02/14/20 06:00 Intake Total 3465 ml Output Total 0 ml Balance 3465 ml MARIA T LESTER DO Feb 14, 2020 12:46
[2020-02-14] MEDS: OLANZapine 5 MG TAB PO SCH ×2 (13:10→20:12)
[2020-02-14] MEDS: MORPHINE 2 MG/ML 1ML VIAL (J2270) IV PRN ×2 (13:11→21:44)
[2020-02-14 13:49] LABS: ALBUMIN 2.1 GM/DL (3.2-5.2); ALT/SGPT 101 U/L (12-78); BILIRUBIN,DIRECT < 0.1 MG/DL (0.0-0.2); BILIRUBIN,TOTAL 0.4 MG/DL (0.2-1.0)
[2020-02-14 14:00] VITALS: BP 136/65
[2020-02-14 22:00] VITALS: BP 116/65
[2020-02-15] MEDS: VANCOMYCIN HCL 1,000 MG, VIAL MATE ADAPTER 1 EACH in D5W 250 ML IV SCH ×4 (03:50→23:59)
[2020-02-15] MEDS: PERCOCET 5MG/325MG TAB PO PRN (03:51)
[2020-02-15 06:00] VITALS: BP 107/55
[2020-02-15] MEDS: OLANZapine 5 MG TAB PO SCH ×2 (09:34→20:43)
[2020-02-15] MEDS: MORPHINE 2 MG/ML 1ML VIAL (J2270) IV PRN ×3 (09:35→21:39)
[2020-02-15 09:54] LABS: BASO % 0.4 % (0.0-1.0); EOS # 0.5 10^3/uL (0.0-0.5); EOS % 7.3 % (0.0-3.0); HEMATOCRIT 40.9 % (42.0-52.0); LYMPH # 1.5 10^3/uL (1.5-5.0); LYMPH % 21.2 % (24.0-44.0); MEAN CORPUSCULAR HEMOGLOBIN 31.6 pg (27.0-33.0); MEAN CORPUSCULAR HGB CONC 31.8 g/dl (32.0-36.5); MEAN CORPUSCULAR VOLUME 99.3 fl (80.0-96.0); MONO # 0.8 10^3/uL (0.0-0.8); MONO % 10.5 % (0.0-5.0); NEUTROPHILS # 4.3 10^3/uL (1.5-8.5); PLATELET COUNT, AUTOMATED 219 10^3/uL (150-450); RED BLOOD COUNT 4.12 10^6/uL (4.30-6.10); WHITE BLOOD COUNT 7.1 10^3/uL (4.0-10.0)
[2020-02-15 11:10] LABS: SODIUM LEVEL 140 MEQ/L (136-145)
[2020-02-15 11:20] LABS: BLOOD UREA NITROGEN 10 MG/DL (7-18); CALCIUM LEVEL 8.7 MG/DL (8.5-10.1); CARBON DIOXIDE LEVEL 30 MEQ/L (21-32); CHLORIDE LEVEL 106 MEQ/L (98-107); CREATININE FOR GFR 0.69 MG/DL (0.70-1.30); GLOMERULAR FILTRATION RATE > 60.0 (>56); GLUCOSE, FASTING 138 MG/DL (70-100); MAGNESIUM LEVEL 1.9 MG/DL (1.8-2.4)
--- NOTE | 2020-02-15 11:40 | IPNPDOC ---
Text Note Date of Service The patient was seen on 02/15/20. NOTE Subjective: No any acute events overnight. Patient denies fever, chills, nausea, vomiting, diarrhea or dysuria Objective: GENERAL APPEARANCE: NAD HEENT: no scleral icterus, no JVD, EOMI CARDIOVASCULAR: S1S2 LUNGS: CTA ABDOMEN: soft & not tender w palpitation MUSCULOSKELETAL: no cyanosis, no swelling, wound vac in place, R forearm with dressing in place INTEGUMENT: no generalized palor NEUROLOGICAL: cranial nerve function from 2-12 intact intact, follows commands, speech not dysarthric Psych: Patient has some racing thoughts and pressured speech. Assessment and plan Patient is 50 years old male with past medical history of Bipolar disorder / Insomnia, Recent IVDA who presented to the back to the ER for ongoing care of his R forearm. Patient was admitted on 02/10 for compartment syndrome of his right forearm after he had injected IV drugs (MDMA) into his right forearm on 02/08. Patient had received emergent right hand and forearm fasciotomies and irrigation and debridement with Dr. Thakur on the morning of 02/11. Compartment syndrome / Cellulitis of R arm - likely 04/13 IVDA 04/13 MDMA Blood culture negative Await wound culture Continue vancomycin continue with wound vac on R forearm Pain management IVDA / Fevers Await echo report Bipolar disorder Dr. Stack recommended olanzapine 2 times a day. Patient is not psychotic Follow-up with psychiatrist in the outpatient settings Hyponatremia Resolved Transaminitis Secondary to hepatitis C Follow-up with ID for possible treatment Nicotine dependence Nicotine patch VS,Fishbone, I+O VS, Fishbone, I+O Laboratory Tests 02/15/20 09:43 Vital Signs Date Time Temp Pulse Resp B/P (MAP) Pulse Ox O2 Delivery O2 Flow Rate FiO2 02/15/20 09:45 18 Room Air 02/15/20 06:00 99.4 78 107/55 (72) 95 I&O- Last 24 Hours up to 6 AM 02/15/20 06:00 Intake Total 3571 ml Balance 3571 ml MARIA T LESTER DO Feb 15, 2020 11:40
[2020-02-15 15:20] VITALS: BP 95/56
[2020-02-15 22:00] VITALS: BP 130/74
[2020-02-16] MEDS ORDERED: SLF 3 ML SYR IV PRN (04:45)
[2020-02-16] MEDS: MORPHINE 2 MG/ML 1ML VIAL (J2270) IV PRN ×2 (05:03→16:34)
[2020-02-16 06:00] VITALS: BP 118/67
[2020-02-16 06:41] LABS: BASO # 0.1 10^3/uL (0.0-0.2); EOS # 0.6 10^3/uL (0.0-0.5); EOS % 8.4 % (0.0-3.0); HEMATOCRIT 40.7 % (42.0-52.0); HEMOGLOBIN 13.1 g/dl (13.5-17.5); LYMPH % 28.5 % (24.0-44.0); MEAN CORPUSCULAR HEMOGLOBIN 32.2 pg (27.0-33.0); MEAN CORPUSCULAR HGB CONC 32.2 g/dl (32.0-36.5); MONO # 0.9 10^3/uL (0.0-0.8); NEUTROPHILS # 3.4 10^3/uL (1.5-8.5); NEUTROPHILS % 47.4 % (36.0-66.0); PLATELET COUNT, AUTOMATED 274 10^3/uL (150-450); RED BLOOD COUNT 4.07 10^6/uL (4.30-6.10); WHITE BLOOD COUNT 7.1 10^3/uL (4.0-10.0)
[2020-02-16 07:10] LABS: BLOOD UREA NITROGEN 13 MG/DL (7-18); CALCIUM LEVEL 9.1 MG/DL (8.5-10.1); CARBON DIOXIDE LEVEL 28 MEQ/L (21-32); CHLORIDE LEVEL 107 MEQ/L (98-107); CREATININE FOR GFR 0.59 MG/DL (0.70-1.30); GLOMERULAR FILTRATION RATE > 60.0 (>56); GLUCOSE, FASTING 115 MG/DL (70-100); POTASSIUM SERUM 4.4 MEQ/L (3.5-5.1); SODIUM LEVEL 138 MEQ/L (136-145)
[2020-02-16] MEDS: VANCOMYCIN HCL 1,000 MG, VIAL MATE ADAPTER 1 EACH in D5W 250 ML IV SCH ×2 (08:00→16:31)
[2020-02-16] MEDS: OLANZapine 5 MG TAB PO SCH ×2 (08:00→21:27)
[2020-02-16 14:00] VITALS: BP 117/63
[2020-02-16] MEDS: SLF 3 ML SYR IV SCH ×2 (14:16→21:27)
--- NOTE | 2020-02-16 14:28 | IPNPDOC ---
Text Note Date of Service The patient was seen on 02/16/20. NOTE Subjective: No any acute events overnight. Patient denies fever, chills, nausea, vomiting, diarrhea or dysuria Objective: GENERAL APPEARANCE: NAD HEENT: no scleral icterus, no JVD, EOMI CARDIOVASCULAR: S1S2 LUNGS: CTA ABDOMEN: soft & not tender w palpitation MUSCULOSKELETAL: no cyanosis, no swelling, wound vac in place, R forearm with dressing in place INTEGUMENT: no generalized palor NEUROLOGICAL: cranial nerve function from 2-12 intact intact, follows commands, speech not dysarthric Psych: Patient has some racing thoughts and pressured speech. Assessment and plan Patient is 50 years old male with past medical history of Bipolar disorder / Insomnia, Recent IVDA who presented to the back to the ER for ongoing care of his R forearm. Patient was admitted on 02/10 for compartment syndrome of his right forearm after he had injected IV drugs (MDMA) into his right forearm on 02/08. Patient had received emergent right hand and forearm fasciotomies and irrigation and debridement with Dr. Thakur on the morning of 02/11. Compartment syndrome / Cellulitis of R arm - likely / IVDA / MDMA Blood culture negative Continue vancomycin continue with wound vac on R forearm Orthopedic team plan to remove wound vac tomorrow Pain management IVDA / Fevers Await echo report Bipolar disorder Dr. Stack recommended olanzapine 2 times a day. Patient is not psychotic Follow-up with psychiatrist in the outpatient settings Hyponatremia Resolved Transaminitis Secondary to hepatitis C Follow-up with ID for possible treatment Nicotine dependence Nicotine patch VS,Fishbone, I+O VS, Fishbone, I+O Laboratory Tests 02/16/20 06:17 Vital Signs Date Time Temp Pulse Resp B/P (MAP) Pulse Ox O2 Delivery O2 Flow Rate FiO2 02/16/20 14:00 98.3 75 18 117/63 (81) 98 Room Air I&O- Last 24 Hours up to 6 AM 02/16/20 06:00 Intake Total 2130 ml Balance 2130 ml MARIA T LESTER DO Feb 16, 2020 14:28
--- NOTE | 2020-02-16 18:37 | IPN ---
INFECTIOUS DISEASE PROGRESS NOTE DATE: 02/16/2020 SUBJECTIVE: Teo has been very sleepy today. He was started on Zyprexa 5 mg p.o. twice daily. According to the nurses, he was very anxious. He was seen by Dr. Stack from [facility] for that evaluation of bipolar disorder. He will be going to the O.R. tomorrow for closure. He does not have significant pain in his hand. When I saw him he was lethargic and sleepy. PHYSICAL EXAMINATION: VITAL SIGNS: Temperature is 98.3, pulse 75, respirations 18, blood pressure 117/63, O2 sat 98% on room air. EXTREMITIES: Hand mildly swollen. I did not remove the wound VAC or change his dressing today. He has good grasp. IMPRESSION: 1. Right hand abscess with compartment syndrome. Culture was only positive for staph epidermidis. Blood cultures were negative and aerobic cultures were negative. The patient has responded to IV Vancomycin. 2. Chronic hepatitis C needs to be treated. His liver functions tests will remain elevated until treatment for his hepatitis C. I would not suggest using Depakote at this time. 3. Bipolar disorder doing well on Zyprexa at this time. LABORATORY STUDIES: White count 7.1, hemoglobin 13.1, hematocrit 40.7, platelets 274, 47% neutrophils, 28% lymphocytes, 13% monocytes. Sodium 138, potassium 4.4, chloride 107, bicarbonate 28, BUN 13, creatinine 0.59, glucose 115 PLAN: 1. Continue IV Vancomycin for 48 hours. 2. Surgery tomorrow and then could be switched to p.o. Keflex as it is Oxacillin sensitive staph epidermidis for discharge [facility]
[2020-02-16 20:00] VITALS: BP 134/78
[2020-02-16] MEDS: VANCOMYCIN HCL 750 MG, VIAL MATE ADAPTER 1 EACH in D5W 250 ML IV SCH (21:27)
[2020-02-16] MEDS: PERCOCET 5MG/325MG TAB PO PRN (21:37)
[2020-02-16] MEDS: VANCOMYCIN HCL 500 MG in D5W MINI-BAG PLUS 100 ML IV SCH (23:16)
[2020-02-17] VITALS (7 sets, daily range): BP systolic 116–137; BP diastolic 61–73
[2020-02-17] MEDS: VANCOMYCIN HCL 750 MG, VIAL MATE ADAPTER 1 EACH in D5W 250 ML IV SCH ×3 (06:00→22:14)
[2020-02-17] MEDS: SLF 3 ML SYR IV SCH ×3 (06:00→22:13)
[2020-02-17] MEDS: VANCOMYCIN HCL 500 MG in D5W MINI-BAG PLUS 100 ML IV SCH ×2 (07:43→18:39)
[2020-02-17] MEDS: OLANZapine 5 MG TAB PO SCH ×2 (07:43→20:32)
[2020-02-17 07:49] LABS: BASO # 0.1 10^3/uL (0.0-0.2); BASO % 0.9 % (0.0-1.0); EOS # 0.5 10^3/uL (0.0-0.5); EOS % 7.1 % (0.0-3.0); HEMATOCRIT 41.1 % (42.0-52.0); HEMOGLOBIN 13.2 g/dl (13.5-17.5); LYMPH # 2.8 10^3/uL (1.5-5.0); LYMPH % 38.4 % (24.0-44.0); MEAN CORPUSCULAR HEMOGLOBIN 32.4 pg (27.0-33.0); MEAN CORPUSCULAR HGB CONC 32.1 g/dl (32.0-36.5); MEAN CORPUSCULAR VOLUME 100.7 fl (80.0-96.0); MONO # 0.8 10^3/uL (0.0-0.8); MONO % 10.7 % (0.0-5.0); NEUTROPHILS # 2.9 10^3/uL (1.5-8.5); NEUTROPHILS % 39.6 % (36.0-66.0); PLATELET COUNT, AUTOMATED 293 10^3/uL (150-450); RED BLOOD COUNT 4.08 10^6/uL (4.30-6.10); WHITE BLOOD COUNT 7.4 10^3/uL (4.0-10.0)
[2020-02-17 07:54] LABS: BLOOD UREA NITROGEN 13 MG/DL (7-18); CALCIUM LEVEL 8.2 MG/DL (8.5-10.1); CARBON DIOXIDE LEVEL 28 MEQ/L (21-32); CHLORIDE LEVEL 110 MEQ/L (98-107); CREATININE FOR GFR 0.58 MG/DL (0.70-1.30); GLOMERULAR FILTRATION RATE > 60.0 (>56); GLUCOSE, FASTING 111 MG/DL (70-100); POTASSIUM SERUM 4.4 MEQ/L (3.5-5.1); SODIUM LEVEL 141 MEQ/L (136-145)
[2020-02-17] MEDS ORDERED: METOCLOPRAMIDE INJ 10MG/2ML VIAL (J2765 PER 1) As Ordered ONE (12:14)
[2020-02-17] MEDS ORDERED: LIDOCAINE 2% 100MG/5ML SDV (FOR ANES.) As Ordered ONE (12:14)
[2020-02-17] MEDS ORDERED: fentaNYL 100 MCG/2 ML INJECTION (J3010) As Ordered ONE ×2 (12:14→14:33)
[2020-02-17] MEDS ORDERED: propofoL 200 MG/20 ML VIAL As Ordered ONE (12:14)
[2020-02-17] MEDS ORDERED: MIDAZOLAM INJ 2MG/2ML VIAL (J2250 PER 1MG) As Ordered ONE (12:14)
[2020-02-17] MEDS ORDERED: ONDANSETRON 4MG/2ML VIAL As Ordered ONE (12:14)
[2020-02-17] MEDS ORDERED: ceFAZolin 1GM VIAL (J0690 PER 500MG) As Ordered ONE (13:10)
[2020-02-17] MEDS ORDERED: dexameTHASONE 4 MG/ML 1ML VIAL (J1100 PER 1MG) As Ordered ONE (13:34)
[2020-02-17] MEDS ORDERED: KETOROLAC 60MG 2ML VIAL As Ordered ONE (13:34)
[2020-02-17] MEDS ORDERED: METOCLOPRAMIDE INJ 10MG/2ML VIAL (J2765 PER 1) IV PRN (14:15)
[2020-02-17] MEDS ORDERED: LR 1,000 ML IV SCH (14:15)
[2020-02-17] MEDS ORDERED: PERCOCET 5MG/325MG TAB PO PRN (14:15)
[2020-02-17] MEDS ORDERED: ONDANSETRON 4MG/2ML VIAL IV PRN (14:15)
[2020-02-17] MEDS ORDERED: PERCOCET 5MG/325MG TAB As Ordered ONE ×2 (14:17→14:51)
[2020-02-17] MEDS: PERCOCET 5MG/325MG TAB PO PRN ×3 (14:18→18:33)
[2020-02-17] MEDS: fentaNYL 100 MCG/2 ML INJECTION (J3010) IV PRN ×2 (14:34→14:48)
[2020-02-17] MEDS: LR 1,000 ML IV SCH ×2 (15:50→23:15)
--- NOTE | 2020-02-17 17:16 | RO ---
OPERATIVE NOTE DATE OF OPERATION: 02/17/2020 SURGEON: Dr. Thakur. REAL ESTATE ECONOMIST: Jocelyn TYPE OF ANESTHETIC: General anesthetic. CAR SALES CONSULTANT: None. PREOPERATIVE DIAGNOSIS: Right forearm infection and compartment syndrome. POSTOPERATIVE DIAGNOSIS: Right forearm infection and compartment syndrome. PLANNED PROCEDURE: Right forearm irrigation and debridement, possible wound closure versus VAC dressing application. PROCEDURE PERFORMED: Right forearm and hand irrigation and debridement and wound closure. OPERATIVE PREAMBLE: This 50-year-old man presents with signs and symptoms consistent with infection and acute compartment syndrome of the hand and forearm. I had performed acute forearm and hand fasciotomies and placed a vacuum dressing. The plan today is for irrigation and debridement and possible wound closure versus vacuum dressing application. He understands the risks and signed the consent form for surgery and proceeded to surgery. OPERATIVE REPORT: Patient was brought to the operating theater. Administered general anesthetic. He was placed supine on the operating room table, hand table to patient's right side. The arm was prepped and draped after vacuum dressing was removed with iodine based prep solution. Prep solution was allowed to thoroughly dry prior to draping. Patient was on vancomycin already for antibiotic prophylaxis. Preoperative time out was performed confirming the site, the patient, and surgery. We began by inspecting the hand incisions. These appeared clean and dry. There was one area where it appeared the IV injection drugs were being injected more towards the ulnar side of the hand ulnar to the ulnar side of dorsal skin incision that had undergone some very mild superficial necrosis for a pinpoint incision. This was gently debrided and thoroughly irrigated with normal saline with Ancef solution. Subcutaneous tissues of the hand were both closed with interrupted 2-0 Vicryl sutures and the skin with 3-0 Ethilon in a horizontal mattress fashion. I then turned my attention to the forearm fasciotomy incision. I thoroughly irrigated this with 2 liters of normal saline with 2 grams of Ancef solution in each liter. Tissues appeared totally viable. No obvious muscle necrosis. Forearm and hand compartments were soft. There was no obvious area of purulence or drainage, and as such, forearm fasciotomy wound was closed with interrupted running 2-0 Vicryl sutures as well as skin with interrupted 3-0 Ethilon as a running type suture in the middle of the incision with 3-0 Ethilon sutures. The skin was cleaned with wet and dry dressing, followed by application of Adaptic, 4 x 4 gauze, ABD dressing and over adequate gentle Sunil dressing and then tape at the end. Patient was woken up from general anesthetic, transferred off the operating table, and taken to the postanesthetic care unit in stable condition. All sponge count, needle count, and instrument counts were correct. Estimated blood loss 20 mL. The patient is to start immediate hand and wrist range of motion. No heavy lifting. Infectious Disease will have to determine the length, type, and whether it is reasonable to step down to oral antibiotics in order to discharge the patient and follow up in two weeks' time. I will follow up tomorrow morning to change the dressing and examine the wound. CORETTA
--- NOTE | 2020-02-17 17:21 | IPNPDOC ---
Text Note Date of Service The patient was seen on 02/17/20. NOTE Subjective: Wound vac was removed today. Patient tolerates procedure well Objective: GENERAL APPEARANCE: NAD HEENT: no scleral icterus, no JVD, EOMI CARDIOVASCULAR: S1S2 LUNGS: CTA ABDOMEN: soft & not tender w palpitation MUSCULOSKELETAL: no cyanosis, no swelling, wound vac in place, R forearm with dressing in place INTEGUMENT: no generalized palor NEUROLOGICAL: cranial nerve function from 2-12 intact intact, follows commands, speech not dysarthric Psych: Patient has some racing thoughts and pressured speech. Assessment and plan Patient is 50 years old male with past medical history of Bipolar disorder / Insomnia, Recent IVDA who presented to the back to the ER for ongoing care of his R forearm. Patient was admitted on 02/10 for compartment syndrome of his right forearm after he had injected IV drugs (MDMA) into his right forearm on 02/08. Patient had received emergent right hand and forearm fasciotomies and irrigation and debridement with Dr. Thakur on the morning of 02/11. Compartment syndrome / Cellulitis of R arm - likely / IVDA 04/13 MDMA Blood culture negative Continue vancomycin wound vac removed Pain management Patient will need 10 days of Keflex after discharge IVDA / Fevers Await echo report Bipolar disorder Dr. Stack recommended olanzapine 2 times a day. Patient is not psychotic Follow-up with psychiatrist in the outpatient settings Hyponatremia Resolved Transaminitis Secondary to hepatitis C Follow-up with ID for possible treatment Nicotine dependence Nicotine patch VS,Fishbone, I+O VS, Fishbone, I+O Laboratory Tests 02/17/20 07:09 Vital Signs Date Time Temp Pulse Resp B/P (MAP) Pulse Ox O2 Delivery O2 Flow Rate FiO2 02/17/20 17:00 98.6 81 18 120/65 (83) 100 Room Air 02/17/20 14:01 2 I&O- Last 24 Hours up to 6 AM 02/17/20 06:00 Intake Total 1320 ml Output Total 0 ml Balance 1320 ml MARIA T LESTER DO Feb 17, 2020 17:21
[2020-02-18] MEDS: VANCOMYCIN HCL 500 MG in D5W MINI-BAG PLUS 100 ML IV SCH ×2 (00:11→07:13)
[2020-02-18 00:30] VITALS: BP 91/46
[2020-02-18 01:00] VITALS: BP 100/60
[2020-02-18 04:00] VITALS: BP 112/59
[2020-02-18 05:36] LABS: BASO % 0.4 % (0.0-1.0); EOS % 0.3 % (0.0-3.0); HEMATOCRIT 37.1 % (42.0-52.0); HEMOGLOBIN 12.1 g/dl (13.5-17.5); LYMPH # 2.7 10^3/uL (1.5-5.0); LYMPH % 25.3 % (24.0-44.0); MEAN CORPUSCULAR HGB CONC 32.6 g/dl (32.0-36.5); MEAN CORPUSCULAR VOLUME 101.1 fl (80.0-96.0); MONO # 1.2 10^3/uL (0.0-0.8); MONO % 11.1 % (0.0-5.0); NEUTROPHILS # 6.4 10^3/uL (1.5-8.5); NEUTROPHILS % 61.2 % (36.0-66.0); PLATELET COUNT, AUTOMATED 331 10^3/uL (150-450); RED BLOOD COUNT 3.67 10^6/uL (4.30-6.10); WHITE BLOOD COUNT 10.5 10^3/uL (4.0-10.0)
[2020-02-18] MEDS ORDERED: PERC5TAB12 PO (05:41)
[2020-02-18] MEDS: VANCOMYCIN HCL 750 MG, VIAL MATE ADAPTER 1 EACH in D5W 250 ML IV SCH (05:53)
[2020-02-18] MEDS: SLF 3 ML SYR IV SCH (05:53)
[2020-02-18 06:00] VITALS: BP 126/74
[2020-02-18] MEDS: PERCOCET 5MG/325MG TAB PO PRN (06:10)
[2020-02-18 06:19] LABS: BLOOD UREA NITROGEN 23 MG/DL (7-18); CARBON DIOXIDE LEVEL 26 MEQ/L (21-32); CHLORIDE LEVEL 108 MEQ/L (98-107); CREATININE FOR GFR 0.69 MG/DL (0.70-1.30); GLOMERULAR FILTRATION RATE > 60.0 (>56); GLUCOSE, FASTING 118 MG/DL (70-100); POTASSIUM SERUM 4.6 MEQ/L (3.5-5.1); SODIUM LEVEL 139 MEQ/L (136-145)
[2020-02-18] MEDS: LR 1,000 ML IV SCH (07:15)
[2020-02-18] MEDS ORDERED: KEFL500C17 PO ×2 (07:47→09:34)
[2020-02-18] MEDS: OLANZapine 5 MG TAB PO SCH (08:32)
[2020-02-18] MEDS ORDERED: ACET1TAB55 PO (10:07)
[2020-02-18] MEDS ORDERED: OLAN5TAB PO (10:07)
--- NOTE | 2020-02-18 17:11 | DS.PDOC ---
Discharge Summary General Date of Admission Feb 13, 2020 at 02:44 Date of Discharge 02/18/20 Discharge Summary PROCEDURES PERFORMED DURING STAY: [None]. ADMITTING DIAGNOSES: Compartment syndrome / Cellulitis of R arm - likely 2/2 IVDA 2/2 MDMA Bipolar disorder Hyponatremia Transaminitis Nicotine dependence DISCHARGE DIAGNOSES: Compartment syndrome / Cellulitis of R arm - likely 2/2 IVDA 2/2 MDMA Bipolar disorder Hyponatremia Transaminitis Nicotine dependence COMPLICATIONS/CHIEF COMPLAINT: Cellulitis Of Right Hand, Compartment Syndrome. HISTORY OF PRESENT ILLNESS:Patient is 50 years old male with past medical history of Bipolar disorder / Insomnia, Recent IVDA who presented to the back to the ER for ongoing care of his R forearm. Patient was admitted on 02/10 for compartment syndrome of his right forearm after he had injected IV drugs (MDMA) into his right forearm on 02/08. Patient had received emergent right hand and forearm fasciotomies and irrigation and debridement with Dr. Thakur on the morning of 02/11. HOSPITAL COURSE: During hospital stay following issues addressed Compartment syndrome / Cellulitis of R arm - likely 2/2 IVDA 2/2 MDMA Blood culture negative Patient received vancomycin wound vac was removed Pain management Patient will need 10 days of Keflex after discharge IVDA / Fevers Await echo report Bipolar disorder Dr. Stack recommended olanzapine 2 times a day. Patient is not psychotic Follow-up with psychiatrist in the outpatient settings Hyponatremia Resolved Transaminitis Secondary to hepatitis C Follow-up with ID for possible treatment Nicotine dependence Nicotine patch DISCHARGE MEDICATIONS: Please see below. ALLERGIES: Please see below. PHYSICAL EXAMINATION ON DISCHARGE: VITAL SIGNS: Please see below. GENERAL APPEARANCE: NAD HEENT: no scleral icterus, no JVD, EOMI CARDIOVASCULAR: S1S2 LUNGS: CTA ABDOMEN: soft & not tender w palpitation MUSCULOSKELETAL: no cyanosis, no swelling, wound vac in place, R forearm with dressing in place INTEGUMENT: no generalized palor NEUROLOGICAL: cranial nerve function from 2-12 intact intact, follows commands, speech not dysarthric LABORATORY DATA: Please see below. PROGNOSIS: Fair ACTIVITY: [As tolerated]. DIET: Regular DISPOSITION: 01 Home, Self-Care. ITEMS TO FOLLOWUP ON ON OUTPATIENT: Follow-up with ID, psychiatrist and orthopedic team DISCHARGE CONDITION: [Stable]. TIME SPENT ON DISCHARGE: Greater than 30 minutes. Vital Signs/I&Os Vital Signs Date Time Temp Pulse Resp B/P (MAP) Pulse Ox O2 Delivery O2 Flow Rate FiO2 02/18/20 06:10 20 02/18/20 06:00 97.5 72 126/74 (91) 96 Room Air 02/17/20 14:01 2 I&O- Last 24 Hours up to 6 AM 02/18/20 06:00 Intake Total 2620 ml Output Total 20 ml Balance 2600 ml Laboratory Data Labs 24H Laboratory Tests 2 02/18/20 05:27: Immature Granulocyte % (Auto) 1.7, Neutrophils (%) (Auto) 61.2, Lymphocytes (%) (Auto) 25.3, Monocytes (%) (Auto) 11.1H, Eosinophils (%) (Auto) 0.3, Basophils (%) (Auto) 0.4, Neutrophils # (Auto) 6.4, Lymphocytes # (Auto) 2.7, Monocytes # (Auto) 1.2H, Eosinophils # (Auto) 0.0, Basophils # (Auto) 0.0, Nucleated Red Blood Cells % (auto) 0.0, Anion Gap 5L, Glomerular Filtration Rate > 60.0, Calcium Level 8.0L, Magnesium Level 2.0, Vancomycin Level Trough 20.8H CBC/BMP Laboratory Tests 02/18/20 05:27 Microbiology Microbiology 02/13/20 Blood Culture - Preliminary, Resulted No Growth after 72 hours. All specime... 02/13/20 Blood Culture - Final, Complete NO GROWTH AFTER 5 DAYS Discharge Medications Scheduled Cephalexin (Keflex) 500 Mg Capsule, 1 CAP PO QID Olanzapine (Olanzapine) 5 Mg Tablet, 5 MG PO BID Scheduled PRN Acetaminophen (Acetaminophen) 325 Mg Tablet, 650 MG PO Q4H PRN for PAIN OR FEVER Oxycodone HCl/Acetaminophen (Percocet 5-325 mg Tablet) 1 Each Tablet, 1-2 TAB PO Q4H PRN for PAIN Allergies Coded Allergies: Penicillins (Verified Allergy, Severe, 02/11/20) MARIA T LESTER DO Feb 18, 2020 17:11
== END 2020-02-18 12:55 | disposition home or self-care (01) | DRG 351 ==
LOC: M ED 00:39 → M ED INP 02:44 → M MS5PR 03:25
PROVIDERS: ADMIT Internal Medicine; ATTEND Internal Medicine
PROC: 0HDFXZZ Extraction of Right Hand Skin, External Approach (ICD-10-PCS; principal; 2020-02-17 12:15)
DX: M79.A11 Nontraumatic compartment syndrome of right upper extremity (principal); E87.1 Hypo-osmolality and hyponatremia; F31.9 Bipolar disorder, unspecified; G47.00 Insomnia, unspecified; F17.200 Nicotine dependence, unspecified, uncomplicated; D53.9 Nutritional anemia, unspecified; R74.01 Elevation of levels of liver transaminase levels; L03.113 Cellulitis of right upper limb; F15.14 Other stimulant abuse with stimulant-induced mood disorder; B18.2 Chronic viral hepatitis C; Z88.0 Allergy status to penicillin; Z20.828 Contact with and (suspected) exposure to other viral communicable diseases

== ENCOUNTER 2020-03-07 13:14 | Emergency (ER) | payer OTHER ==
[~2020-03-07] VITALS: Ht 180.3 cm; Wt 68.0 kg
[~2020-03-07 13:14] MED LIST changes: +ACET1TAB55 PO; +KEFL500C17 PO; +OLAN5TAB PO; +PERC5TAB12 PO
[2020-03-07] MEDS ORDERED: OMEP40CA97 PO (13:18)
[2020-03-07] MEDS ORDERED: ADV250INH INH (13:18)
[2020-03-07] MEDS ORDERED: PROAAER10 INH (13:18)
[2020-03-07 14:06] VITALS: BP 126/85
== END 2020-03-07 15:01 | disposition left against medical advice (07) ==
LOC: M ED 13:14 → EEVIPCON 13:14 → M ED 15:01
DX: Z53.9 Procedure and treatment not carried out, unspecified reason (principal); M79.601 Pain in right arm; T79.A0XA Compartment syndrome, unspecified, initial encounter; Z48.02 Encounter for removal of sutures; E78.5 Hyperlipidemia, unspecified; F17.200 Nicotine dependence, unspecified, uncomplicated; Z88.0 Allergy status to penicillin

== ENCOUNTER 2020-03-29 18:04 | Emergency (ER) | payer OTHER ==
[~2020-03-29 18:04] MED LIST changes: +ADV250INH INH; +OMEP40CA97 PO; +PROAAER10 INH
--- OUTSIDE RECORDS SUMMARY | 2020-03-29 18:09 | CCD ---
Author Author [facility] Organization [facility] Address Unknown Phone Unavailable Care Team Providers Care Medical Clerical Assistant Name Role Phone Zeb, T Justino MAINFRAME SOFTWARE DEVELOPER Unavailable Unavailable Zeb, T Justino MAINFRAME SOFTWARE DEVELOPER Unavailable Unavailable Zeb, T Justino MAINFRAME SOFTWARE DEVELOPER Unavailable Unavailable Zeb, T Justino MAINFRAME SOFTWARE DEVELOPER Unavailable Unavailable Zeb, T Justino MAINFRAME SOFTWARE DEVELOPER Unavailable Unavailable Zeb, T Justino MAINFRAME SOFTWARE DEVELOPER Unavailable Unavailable Zeb, T Justino MAINFRAME SOFTWARE DEVELOPER Unavailable Unavailable Liane Thakur MD Unavailable Unavailable Liane Thakur MD Unavailable Unavailable Liane Thakur MD Unavailable Unavailable Liane Thakur MD Unavailable Unavailable Liane Thakur MD Unavailable Unavailable Liane Thakur MD Unavailable Unavailable Liane Thakur MD Unavailable Unavailable Liane Thakur MD Unavailable Unavailable Liane Thakur MD Unavailable Unavailable Liane Thakur MD Unavailable Unavailable Liane Thakur MD Unavailable Unavailable Liane Thakur MD Unavailable Unavailable Liane Thakur MD Unavailable Unavailable Liane Thakur MD Unavailable Unavailable MollisonLiane MD Unavailable Unavailable Mollison, Liane Bernardo MD Unavailable Unavailable Mollison, Liane Bernardo MD Unavailable Unavailable Mollison, Liane Bernardo MD Unavailable Unavailable Mollison, Liane Bernardo MD Unavailable Unavailable Mollison, Liane Bernardo MD Unavailable Unavailable Mollison, Liane Bernardo MD Unavailable Unavailable Lopez Rodriguez [facility] Unavailable Unavailable JOYCE ., LILI DO Unavailable Unavailable JOYCE ., LILI DO Unavailable Unavailable Beverley, Wajeeh MD Unavailable Unavailable Beverley, Wajeeh MD Unavailable Unavailable Beverley, Wajeeh MD Unavailable Unavailable Beverley, Wajeeh MD Unavailable Unavailable Beverley, Wajeeh MD Unavailable Unavailable Beverley, Wajeeh MD Unavailable Unavailable Beverley, Wajeeh MD Unavailable Unavailable Beverley, Wajeeh MD Unavailable Unavailable Beverley, Wajeeh MD Unavailable Unavailable Beverley, Wajeeh MD Unavailable Unavailable Beverley, Wajeeh MD Unavailable Unavailable Beverley, Wajeeh MD Unavailable Unavailable Beverley, Wajeeh MD Unavailable Unavailable Beverley, Wajeeh MD Unavailable Unavailable Beverley, Wajeeh MD Unavailable Unavailable Beverley, Wajeeh MD Unavailable Unavailable Beverley, Wajeeh MD Unavailable Unavailable Beverley, Wajeeh MD Unavailable Unavailable Beverley, Wajeeh MD Unavailable Unavailable Edil Pleitez [facility] Unavailable Unavailable Kvng Matute MD Unavailable Unavailable Re-disclosure Warning The records that you are about to access may contain information from federally-assisted alcohol or drug abuse programs. If such information is present, then the following federally mandated warning applies: This information has been disclosed to you from records protected by federal confidentiality rules (42 CFR part 2). The federal rules prohibit you from making any further disclosure of this information unless further disclosure is expressly permitted by the written consent of the person to whom it pertains or as otherwise permitted by 42 CFR part 2. A general authorization for the release of medical or other information is NOT sufficient for this purpose. The Federal rules restrict any use of the information to criminally investigate or prosecute any alcohol or drug abuse patient.The records that you are about to access may contain highly sensitive health information, the redisclosure of which is protected by Article 27-F of the [facility] Public Health law. If you continue you may have access to information: Regarding HIV / AIDS; Provided by facilities licensed or operated by the [facility] Office of Mental Health; or Provided by the [facility] Office for People With Developmental Disabilities. If such information is present, then the following [facility] mandated warning applies: This information has been disclosed to you from confidential records which are protected by state law. State law prohibits you from making any further disclosure of this information without the specific written consent of the person to whom it pertains, or as otherwise permitted by law. Any unauthorized further disclosure in violation of state law may result in a fine or half-way sentence or both. A general authorization for the release of medical or other information is NOT sufficient authorization for further disc losure. Allergies and Adverse Reactions Type Description Substance Reaction Status Data Source(s ) Drug allergy aspirin [facility] B[facility] iodine iodine swelling [place] [facility] Drug allergy Penicillins Penicillin [facility] En[facility] Providers Location Date Indications Data Source(s ) Office Visit Attender: Az Garcia/Mimi/Christopher/Aimee adhikaril 02/25/2020 10:10:00 AM EST [facility] ([facility] Outpatient Attender: Edil Pleitez [facility] 02/23/2020 08:15 :00 AM EST [facility] Outpatient Attender: dEil Pleitez [facility] 1 04/25/2019 08:00:00 AM EST - 02/23/2020 08:58:00 AM EST [facility] Patient discharged. Outpatient Attender: Jaydon Rodriguez [facility] 02/10/2020 11:00 :00 AM EST [facility] Inpatient Attender: Kvng Matute MDAttender: LILI BREWSTER [facility] .Admitter: Kvng Matute MD 02/01/2020 06:00:00 PM EST - 02/06/2020 10:53:00 AM ES T Depression/SI/Substance Abuse [facility] Depression/SI/Substance Abuse Patient discharged. Outpatient Attender: Kvng Reidit ter: Kvng Matute MDConsultant: Kvng Matute MD 02/01/2020 06:00:00 PM EST Depression/SI/Substan ce Abuse [facility] Depression/SI/Substance Abuse Outpatient Attender: Kvng Reidit ter: Kvng Matute MDConsultant: Kvng Matute MD 02/01/2020 06:00:00 PM EST Depression/SI/Substan ce Abuse [facility] Depression/SI/Substance Abuse Outpatient Attender: Kvng Colon MDAdmit ter: Kvng Colon MDConsultant: Kvng Colon 02/01/2020 06:00:00 PM EST Depression/SI/Substan ce Abuse [facility] Depression/SI/Substance Abuse Outpatient Attender: Kvng Colon MDAdmit ter: Kvng Colon MDConsultant: Kvng Colon 02/01/2020 06:00:00 PM EST Depression/SI/Substan ce Abuse [facility] Depression/SI/Substance Abuse Outpatient Attender: Kvng Colon MDAdmit ter: Kvng Colon MDConsultant: Knvg Colon 02/01/2020 06:00:00 PM EST Depression/SI/Substan ce Abuse [facility] Depression/SI/Substance Abuse Outpatient Attender: Justino Carrington NP 02/01/2020 05:57:00 PM EST Eval [facility] Eval Inpatient Attender: Kvng Matute MDAtten codie: Dwight Lowery MDAdmitter: Kvng Matute MD 02/01/2020 01:20:00 PM EST - 02/01/2020 05:59:00 PM EST Eval [facility] Eval Admission cancelled. Disregard status an d admitted date. Insurance Providers Payer name Policy type / Coverage type Policy ID Covered green party ID Covered green party's relationship to yung Policy Yung Plan Information KIAN [id number] SP [id number] KIAN CARE [place] O [id number] S [id number] SELF PAY KIAN [id number] SP [id number] 200 SELF PAY KIAN [id number] SP [id number] 200 SELF PAY KIAN [id number] SP [id number] 200 KIAN [id number] SP [id number] SELF PAY KIAN [id number] SP [id number] 200 SELF PAY KIAN [id number] SP [id number] 200 SELF PAY KIAN [id number] SP [id number] 200 SELF PAY KIAN [id number] SP [id number] 200 KIAN [id number] SP [id number] 200 SELF PAY MEDICAID [facility] [id number] SP AG [id number] SELF PAY MEDICAID [id number] [place]en [id number] SELF PAY MEDICAID [facility] [id number] SP AG [id number] MEDICAID [facility] [id number] SP AG [id number] SELF PAY MEDICAID [facility] [id number] SP AG [id number] S[place] [id number] SP AG [id number] SELF PAY SELF PAY MEDICAID [facility] [id number] SP AG [id number] MEDICAID [facility] [id number] SP AG [id number] SELF PAY SELF PAY MEDICAID [facility] [id number] SP AG [id number] SELF PAY MEDICAID [facility] [id number] SP AG [id number] SELF PAY SELF PAY SELF PAY SELF PAY MEDICAID [facility] [id number] SP AG [id number] MEDICAID [facility] [id number] SP AG [id number] MEDICAID [facility] [id number] SP AG [id number] SELF PAY UNAVAILABLE SP UNAVAILA BLE MEDICAID [facility] [id number] SP AG [id number] Problems, Conditions, and Diagnoses Code Display Name Description Problem Type Effective Dates Data Source(s) F32.9 Major depressive disorder, single episod e, unspecified F32.9 - Major depressive disorder, single episode, unspecified Diagnosis 02/22 08:15:00 AM EST [facility] F17.200 Nicotine dependence, unspecified, uncomp licated F17.200 - Nicotine dependence, unspecified, uncomplicated Diagnosis 02/01/2020 06:00:00 P M EST [facility] F15.90 Other stimulant use, unspecified, uncomp licated F15.90 - Other stimulant use, unspecified, uncomplicated Diagnosis 02/01/2020 06:00:00 PM EST [facility] F12.10 Cannabis abuse, uncomplicated F12.10 - Cannabis abuse, uncomplicated Diagnosis 02/01/2020 06:00:00 PM EST [facility] 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, 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, unspecified F19.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 - Other psychoactive substance use, 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 ID Date Data Source [id number] 02/11/2020 09:00:00 PM EST [facility] Name Value Range Interpretation Code Description Data Lottie rce(s) Supporting Document(s) SARS coronavirus 2 RNA [Presence] in Res piratory specimen by CULLEN with probe detection [facility] This lab was ordered by [facility] a nd reported by [facility]. ID Date Data Source [id number] 02/01/2020 05:57:00 PM EST [address] [address] HEALTH INFORMATION MANAGEMENT History and Physical Report : [id number] Signed Patient: Teo Knight Acct:[id number] [facility] t: [id number] : 1970 Loc: ED Room/Bed: Age/Sex: 50 / M ADM Date: 02/01/20 cc: History Physical Date of Service (Initial Exam): 02/01/20 Chief Complaint: Depression with suicidal ideation History of Present Illness: The patient is a 50-year-old male with past medical history significant for anxiety, depression, IV drug abuse, and hepatitis-C. He denies smoking drinking or using illicit drugs. He is very angry and poor historian. This is his 2nd visit to the hospital within the last 24 hours. I was asked to perform history and physical on this patient prior to [facility]. Patient denies fevers chills cough chest pain abdominal pain nausea vomiting diarrhea dysuria leg swelling bruising or rashes. I have reviewed the nirmal diaz's records to include: vital signs, labs, imaging, EKG, urinalysis, tox screen, as well as other relevant documentation. Vital signs stable. Lab work remarkable for glucose 49, AST 87, ALT 152. Urinalysis is negative. Drug screen positive for marijuana. 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 Mother History of cancer Review of Systems Review of Systems: A complete review of systems is negative except as indicated below Anxiety Exam Physical Exam: General: Irritable, uncooperative HEENT: Atraumatic normocephalic anicteric Neck: Supple nontender no JVD Chest: Lungs clear to auscultation Cardio: S1 and S2 strong regular with no murmurs gallops or rubs Abdomen: Soft nontender normoactive bowel sounds Extremity: Distal CSM is intact without edema rash or tenderness Skin: Warm pink and dry Neuro: Alert, oriented, cranial nerves 2-12 intact Psych: Angry Vital Signs: Temp Pulse Resp BP Pulse Ox 98.8 F 86 18 128/78 100 02/01/20 17:21 02/01/20 17:21 02/01/20 17:21 02/01/20 17:21 02/01/20 17:21 Result Diagrams: 02/01/20 14:34 02/01/20 14:34 Laboratory Data: Laboratory-Results Last 24 hours 02/01/20 02/01/20 02/01/20 17:21 14:34 14:34 WBC 5.78 RBC 4.27 L Hgb 14.4 Hct 42.2 MCV 98.8 MCH 33.7 MCHC 34.1 RDW 13.0 Plt Count 197 MPV 8.8 Gran % (Auto) 45.0 Lymph % (Auto) 40.1 Cocke % (Auto) 11.6 Eos % (Auto) 2.2 Baso % (Auto) 0.9 Nucleat RBC Rel Count Not Reportable Gran # 2.60 Lymph # (Auto) 2.3 Cocke # (Auto) 0.67 Eos # (Auto) 0.13 Baso # (Auto) 0.05 Immature Gran # (Auto) 0.0 Absolute Nucleated RBC Not Reportable Immature Gran % 0.2 Sodium 140 Potassium 4.1 Chloride 107 Carbon Dioxide 28 Anion Gap 9 BUN 25 Creatinine 0.8 Estimated GFR (MDRD) > 90.0 BUN/Creatinine Ratio 31 Glucose 49 L* POC Glucose 136 H Calcium 9.5 Total Bilirubin 0.8 AST 87 H ALT 152 H Alkaline Phosphatase 86 Total Protein 7.0 Albumin 4.6 Globulin 2.4 Albumin/Globulin Ratio 1.9 Urine Color Urine Appearance Urine pH Specific [place] (Man) Urine Protein Urine Glucose (UA) Urine Ketones Urine Occult Blood Urine Nitrate Urine Bilirubin Urine Urobilinogen Ur Leukocyte Esterase Salicylates < 3.0 Urine Opiates Screen Ur Heroin Screen Acetaminophen < 2.0 L Ur Barbiturates Screen Ur Phencyclidine Scrn Ur Amphetamines Screen U Benzodiazepines Scrn Urine Cocaine Screen U Marijuana (THC) Screen Plasma/Serum Alcohol < 0.03 Adenovirus (PCR) B. paraper/bronch (PCR) C. pneumoniae DNA (PCR) Coronavirus OC43 (PCR) Coronavirus HKU1 (PCR) Coronavirus 229E (PCR) COVID-19 PCR Coronavirus NL63 (PCR) Human Metapneumovir PCR Influenza A (RT- PCR) Influenza B (RT-PCR) M. pneumoniae (PCR) Parainfluenza 1 (PCR) Parainfluenza 2 (PCR) Parainfluenza 3 (PCR) Parainfluenza 4 (PCR) RSV (PCR) Entero/Rhino (PCR) Bordetel la pertussis (PCR) 02/01/20 02/01/20 02/01/20 13:53 13:53 13:25 WBC RBC Hgb Hct MCV MCH MCHC RDW Plt Count MPV Gran % (Auto) Lymph % (Auto) Cocke % (Auto) Eos % (Auto) Baso % (Auto) Nucleat RBC Rel Count Gran # Lymph # (Auto) Cocke # (Auto) Eos # (Auto) Baso # (Auto) Immature Gran # (Auto) Absolute Nucleated RBC Immature Gran % Sodium Potassium Chloride Carbon Dioxide Anion Gap BUN Creatinine Estimated GFR (MDRD) BUN/Creatinine Ratio Glucose POC Glucose Calcium Total Bilirubin AST ALT Alkaline Phosphatase Total Protein Albumin Globulin Albumin/Globulin Ratio Urine Color YELLOW Urine Appearance CLEAR Urine pH 5.0 Specific [place] (Man) 1.019 Urine Protein NEGATIVE Urine Glucose (UA) 150 H Urine Ketones TRACE Urine Occult Blood NEGATIVE Urine Nitrate NEGATIVE Urine Bilirubin NEGATIVE Urine Urobilinogen 4.0 H Ur Leukocyte Esterase NEGATIVE Salicylates Urine Opiates Screen NEG Ur Heroin Screen NEG Acetaminophen Ur Barbiturates Screen NEG Ur Phencyclidine Scrn NEG Ur Amphetamines Screen NEG U Benzodiazepines Scrn NEG Urine Cocaine Screen NEG U Marijuana (THC) Screen POS Plasma/Serum Alcohol Adenovirus (PCR) Not Detected B. paraper/bronch (PCR) Not Detected C. pneumoniae DNA (PCR) Not Detected Coronavirus OC43 (PCR) Not Detected Coronavirus HKU1 (PCR) Not Detected Coronavirus 229E (PCR) Not Detected COVID-19 PCR NOT-DETECTED Coronavirus NL63 (PCR) Not Detected Human Metapneumovir PCR Not Detected Influenza A (RT-PCR) Not Detected Influenza B (RT-PCR) Not Detected M. pneumoniae (PCR) Not Detected Parainfluenza 1 (PCR) Not Detected Parainfluenza 2 (PCR) Not Detected Parainfluenza 3 (PCR) Not Detected Parainfluenza 4 (PCR) Not Detected RSV (PCR) Not Detected Entero/Rhino (PCR) Not Detected Bordetella pertussis (PCR) Not Detected Assessment/Plan Assessment: Depression with suicidal ideation Polysubstance abuse History of IV drug abuse * Patient admitted to inpatient psychiatry services. Milieu management, psychotropic medications, psychotherapy, safety maintenance, and appropriate disposition will be managed through their discretion. Elevated transaminase levels * Mildly elevated * Asymptomatic * States history of hepatitis-C untreated * Recommend follow-up with GI upon discharge Hypoglycemia * The patient's glucose was 49 upon arrival * He was alert oriented he was given food and his glucose corrected * He reports 99 for the past 2 days. Disposition: Anticipated length of stay unknown at this time. Please contact hospitalist service for any further questions or concerns. Resuscitation Status (Nurse/Provider Doc-Not Order): Full Code Family Discussions: Plan was discussed with patient at bedside. All questions answered. Problems (1) Depression with suicidal ideation: Code(s): F32.9 - Major depressive disorder, single episode, unspecified; R45.851 - Suicidal ideations Status: Acute (2) Hepatitis C: Code(s): B19.20 - Unspecified viral hepatitis C without hepatic coma Status: Acute (3) Polysubstance abuse: Code(s): F19.10 - Other psychoactive substance abuse, uncomplicated Status: Acute (4) Intravenous drug abuse: Code(s): F19.10 - Other psychoactive substance abuse, uncomplicated Status: Acute (5) Hypoglycemia: Code(s): E16.2 - Hypoglycemia, unspecified Status: Acute MIPS MIPS REVIEWED Did you review MIPS this visit?: Yes Hospitalist Charges Worksheet Subject to change for billing criteria Did you complete your Hospitalist charges for this visit?: Yes Inpt Consult [id number] Cons Level 2: Yes Signed By:Justino Carrington <<Signature on File>> Signed Date/Time: 02/01/201824 Co-Signer: Xin Shaw MD Co-Signed Date/Time: 02/02/20 0731 Initializing User: Justino Carrington NP 01/31 56 56 Name Value Range Interpretation Code Description Data Lottie rce(s) Supporting Document(s) ID Date Data Source [id number] 02/01/2020 05:33:53 PM EST [facility] Name Value Range Interpretation Code Description Data Lottie rce(s) Supporting Document(s) EKG/ECG IN ED [facility] [file] b6SixvaSU3G9mtLKnzrCf2S2ky6GohI8XcR7jvQXcWug4odJtdDvM8xDWen+hernández/jzLHthNO5kJLO1KhO [file] JOSE A/9AUophdWis5nByJEnl/pokwOOy0nFi0zF2lXSM B8r/AYQ8DFsiMl112FCDRY0WOArwVCtR6aWmY95not0tutkzZ/aNnNX3XOvl4rNE25LL1hG6sN9acbtS YpK48EEhxYzq9YpiLV6W20y3VjxNmrUlt3rkmlT0fksnBNzoaiFQe83VzmQ90z65Ocs44UEjk3aM3TaV VXRKkeNRjNe2HfMViHOx6suJQopAgtTZUTL752yFz5 zL+CIgCc4MEwM9snS5Gq2iAPEAEkgPJqyF787ZTJxYE3E6cQPI7c1E4A3GCymBb096XhdlziDlhSMXS3 at5aa1Pix4vyohMNjfE5hSlkmkekS4fnLF92wG2g82Wss48RKqj4wBtlNgQB6UNMrxSMrV3sBnG96fhf 1qVLKA+X/lzvktehVzij7cNA0VO6uW3uU7hgzqCAmT KChwqfduSDZ31MbxJsuSca7TK/4WOLq6SXZt1GvyC0tuA1bwn0vQSnwYOByyWYj7zlflO/ujprU0qbJz pUdmmba2/xGvRVMX56GwsRH5BIanL5l+iI0wedXLgmEMo9dHA+nZOcg5fGsKJWeQkYTTrql/6RKhLoe4 utXVqi1hnAOSAmN8N05d5fRUXuwvAaxqmQQR6Grouq JDLYare/KHN356XX1dILeICeBGlnNEfL3Ff0AfSv6yd79grl27/wD+F2/D3/oYf/JK4/8AjdAHXaLren +E3Sh0zAuop6Eez1dkev8bNIjdlPKOIfW1/rEEkfW94E+zETxB/wAI7Yz+aZdS/r87y9wdtwGQNUoWkd DDb4jHzfg0BB5R8V3YAx9sRSd7C+0r7cmBz6aAWAUA eqcqIuQhW2Mz8Z/Zf/Fb/nGXRnb8d/MK+2/rFkUM7Tvtt6w5MFx4g3pEh3b572WnAaqajs9JtDIZ4W3o jj+bf2gI6CHHnHRbExCmEp18Y+2nL183n4pc8xBPhQwze3h5kP8EwgehKU5LybPJYLwnifSAozcaSarh dHAVNRMYyimnTvfxgW1b8Jui069V+m3+JiKl5A [file] JOSE A/3IIluoySpp8wCfUMyp/cexoFGk2tVy1fAlZTuhJ/JISVvKqh8riZCkx7tlQQIr6knuTuleQaGX+X [file] Manager Of Tax/mBGooSAjR6hbyVbSzrtPvLXTCgXeETwf2NdkNcoDxfz9qmZ3xRvOAGXdfmMl3sxYWRQkt1Ejokw1l cooAKKKKACvnW+onWMnGlzlpViLyylL9OAwN1f6+A2ybJ9dQyFD+Y5yHU/ZvrVELkvrlcaeH983jE+Bijan [file] p9YtxqE7jrCwIIehQEW1LopGRbHfVM3H ID Date Data Source "" 02/01/2020 05:33:00 [place] [address] Patient Name: Teo Knihgt Exam Date: 02/01/20 : 1970 CC: EKG/ECG in ED Ordering Doctor: Dwight Lowery MD Attending Doctor: Dwight Lowery MD CC: EKG/ECG in ED APPROVED REPORT ECG MEASUREMENT Heart Rate 68 AXES NV 128 P 68 QRSd 89 QRS 80 QT 410 T 68 QTc 428 INTERPRETATION SINUS RHYTHM WITH SINUS ARRHYTHMIA POSSIBLE RIGHT VENTRICULAR CONDUCTION DELAY [RSR (QR) IN V1/V2] <Conclusion> SINUS RHYTHM WITH SINUS ARRHYTHMIA POSSIBLE RIGHT VENTRICULAR CONDUCTION DELAY [RSR (QR) IN V1/V2] End of diagnostic report for accession: [id number] Interpreted: Dwight Lowery MD 02/01/20 4522 Transcribed: Signed: Dwight Lowery MD 02/01/20 4851 Interpreted by: Dwight LoweryTranscribed by: Dwight Lowery Name Value Range Interpretation Code Description Data Lottie rce(s) Supporting Document(s) ID Date Data Source [id number] 02/03/2020 12:50:00 PM EST [facility] Name Value Range Interpretation Code Description Data Lottie rce(s) Supporting Document(s) RAPID PLASMA REAGIN NON-REACTIVE NONREACTIVE [facility] Test performed by charcoal methodology ID Date Data Source [id number] 02/03/2020 03:17:00 AM EST [facility] Name Value Range Interpretation Code Description Data Lottie rce(s) Supporting Document(s) GLYCOSYLATED HGBA1C 5.0 % 4.1-6.5 N [facility] ID Date Data Source [id number] 02/03/2020 03:17:00 AM [facility] Name Value Range Interpretation Code Description Data Lottie rce(s) Supporting Document(s) TRIGLYCERIDES 88 MG/DL 45-150 N [place] CHOLESTEROL 197 MG/DL 125-200 N [facility] LDL CHOLESTEROL 114 MG/DL 50-130 N [facility] HDL CHOLESTEROL 65 MG/DL 39-96 N [facility] CHOL/HDL RATIO 3.0 0-4.9 N [facility] ID Date Data Source [id number] 02/03/2020 03:17:00 AM [facility] Name Value Range Interpretation Code Description Data Lottie rce(s) Supporting Document(s) VITAMIN B12 560 PG/ML 211-2000 N [facility] ID Date Data Source [id number] 02/03/2020 03:17:00 AM [facility] Name Value Range Interpretation Code Description Data Lottie rce(s) Supporting Document(s) FOLATE 19.94 NG/ML 3.40-24.00 N [facility] ID Date Data Source [id number] 02/03/2020 03:17:00 AM [facility] Name Value Range Interpretation Code Description Data Lottie rce(s) Supporting Document(s) Vitamin D,25-HYDROXY 48.8 ng/ml 30-100 N [facility] Vitamin D Status Range De ficiency <20 ng/ml Insufficiency 20-29.9 ng/ml Sufficiency 30-100 ng/ml Toxicity >100 ng/ml Patients should not be tested for 72 hours post fluorescein dye angiography. A false elevation of result may occur. ID Date Data Source [id number] 02/03/2020 03:17:00 AM EST [facility] Name Value Range Interpretation Code Description Data Lottie rce(s) Supporting Document(s) TSH 1.009 uIU/ML 0.470-4.200 N [facility] Patients should not be tested for 72 ho urs post fluorescein dye angiography. A false depression of result may occur. ID Date Data Source [id number] 02/01/2020 02:59:00 PM EST [facility] Has Patient Fasted For The Past 12 Hour s? N Has Patient Fasted For The Past 12 Hour s? N Has Patient Fasted For The Past 12 Hour s? N Has Patient Fasted For The Past 12 Hour s? N Name Value Range Interpretation Code Description Data Lottie rce(s) Supporting Document(s) WHITE BLOOD COUNT 5.78 10^3/uL 4.00-10.50 N [facility] RED BLOOD COUNT 4.27 10^6/uL 4.30-5.80 L [facility] th HEMOGLOBIN 14.4 G/DL 13.0-17.5 N [facility] HEMATOCRIT 42.2 % 41.0-53.0 N [facility] MCV 98.8 FL 80.0-100.0 N [facility] MCH 33.7 PG 27.0-34.0 N [facility] MCHC 34.1 G/DL 32-36 N [facility] RDW 13.0 % 11.5-14.5 [facility] PLATELET COUNT 197 10^3/uL 130-400 [facility] MPV 8.8 FL 8.7-13.2 [facility] GRAN % (AUTO) 45.0 % 42.0-75.0 N [facility] LYMPH % (AUTO) 40.1 % 20.0-51.0 [facility] MONO % (AUTO) 11.6 % 2.0-15.0 N [facility] EOS % (AUTO) 2.2 % 0.0-11.0 N [facility] BASO % (AUTO) 0.9 % 0.0-2.0 [facility] IG % (AUTO) 0.2 % 1.00-5.00 [facility] IG # (AUTO) 0.0 10^3/uL <0.5 [facility] GRAN # (AUTO) 2.60 10^3/uL 1.50-6.50 N [facility] [facility] LYMPH # (AUTO) 2.3 k/uL 1.0-5.0 N [facility] MONO # (AUTO) 0.67 k/uL 0.20-1.50 N [facility] EOS # (AUTO) 0.13 10^3/uL 0.00-1.10 N [facility] BASO # (AUTO) 0.05 10^3/uL 0.00-0.20 N [facility] ID Date Data Source [id number] 02/01/2020 03:30:00 PM EST [facility] Has Patient Fasted For The Past 12 Hour s? N Has Patient Fasted For The Past 12 Hour s? N Has Patient Fasted For The Past 12 Hour s? N Has Patient Fasted For The Past 12 Hour s? N Name Value Range Interpretation Code Description Data Lottie rce(s) Supporting Document(s) SODIUM 140 MEQ/L 135-145 N [facility] POTASSIUM 4.1 MEQ/L 3.5-5.3 N [facility] CHLORIDE 107 MEQ/L 94-110 N [facility] CARBON DIOXIDE 28 MEQ/L 22-33 N [facility] ANION GAP 9 5-16 N [facility] BLOOD UREA NITRO 25 MG/DL 7-25 N [facility] CREATININE 0.8 MG/DL 0.6-1.4 N [facility] GFR > 90.0 ML/MIN [facility] Stage G1 - Normal or high kidney functi on The GFR is an estimate of the Glomerular Filtration Rate. It is an aid to assess a patient's renal function. It is not a conclusive diagnosis of kidney disease. GFR normal is >=90 The MDRD GFR calculation is considered valid between the ages of 18 and 75 years only. BUN/CREAT RATIO 31 8-36 N [facility] GLUCOSE 49 MG/DL 70-100 LL [facility] Critical Results called to [id number] by [id number] at 1529 on 02/01/20 CA 9.5 MG/DL 8.7-10.5 N [facility] BILIRUBIN,TOTAL 0.8 MG/DL 0.1-1.3 N [facility] [place] [facility] AST 87 U/L 5-40 H [facility] ALT 152 U/L 5-48 H [facility] ALKALINE PHOSPHATASE 86 U/L 40-140 N [facility]th TOTAL PROTEIN 7.0 G/DL 5.9-8.3 N [facility] ALBUMIN 4.6 G/DL 3.0-5.1 N [facility] GLOBULIN 2.4 G/DL 1.5-3.5 N [facility] ALB/GLOB RATIO 1.9 G/DL 1.0-3.0 N [facility] ID Date Data Source [id number] 02/01/2020 03:30:00 PM [facility] Has Patient Fasted For The Past 12 Hour s? N Has Patient Fasted For The Past 12 Hour s? N Has Patient Fasted For The Past 12 Hour s? N Has Patient Fasted For The Past 12 Hour s? N Name Value Range Interpretation Code Description Data Lottie rce(s) Supporting Document(s) SALICYLATE < 3.0 MG/DL 2.8-20.0 N [facility] ID Date Data Source [id number] 02/01/2020 03:30:00 PM [facility] Has Patient Fasted For The Past 12 Hour s? N Has Patient Fasted For The Past 12 Hour s? N Has Patient Fasted For The Past 12 Hour s? N Has Patient Fasted For The Past 12 Hour s? N Name Value Range Interpretation Code Description Data Lottie rce(s) Supporting Document(s) ACETAMINOPHEN < 2.0 UG/ML 10-30 L [facility] High levels of N-acetylcysteine (used t o treat Acetaminophen overdose) may cause interference and cause a negative bias in the Acetaminophen result. ID Date Data Source [id number] 02/01/2020 03:30:00 PM [facility] Has Patient Fasted For The Past 12 Hour s? N Has Patient Fasted For The Past 12 Hour s? N Has Patient Fasted For The Past 12 Hour s? N Has Patient Fasted For The Past 12 Hour s? N Name Value Range Interpretation Code Description Data Lottie rce(s) Supporting Document(s) BLOOD ALCOHOL < 0.03 % <0.03 [facility] ID Date Data Source [id number] 02/01/2020 03:04:00 PM EST [facility] Name Value Range Interpretation Code Description Data Lottie rce(s) Supporting Document(s) COLOR,UR YELLOW YELLOW [facility] APPEARANCE,UR CLEAR CLEAR [facility] PH,UR 5.0 5.0-8.0 [facility] SPECIFIC GRAVITY,UR 1.019 1.002-1.035 N [facility] PROTEIN,UR NEGATIVE MG/DL NEGATIVE [facility] GLUCOSE, UR 150 MG/DL NEGATIVE A [facility] KETONES,UR TRACE MG/DL NEGATIVE [facility] OCCULT BLOOD,UR NEGATIVE NEGATIVE [facility] NITRATE,UR NEGATIVE NEGATIVE [facility] LEUKOCYTE ESTERASE ,UR NEGATIVE NEGATIVE [facility] BILIRUBIN,UR NEGATIVE NEGATIVE [facility] UROBILINOGEN,UR 4.0 EU MG/DL NEG-0-1.0 A [facility] ID Date Data Source [id number] 02/01/2020 03:11:00 PM [facility] Name Value Range Interpretation Code Description Data Lottie rce(s) Supporting Document(s) OPIATE SCREEN NEG NEGATIVE [facility] Minimum Detectable Limit is 300 ng/mL. BARBITURATE SCREEN NEG NEGATIVE [facility] Minimum Detectable Limit is 300 ng/mL. PHENCYCLIDINE SCREEN NEG NEGATIVE [facility] Minimum Detectable Limit is 25 ng/mL. AMPHETAMINE SCREEN NEG NEGATIVE [facility] Minimum Detectable Limit is 1000 mg/mL. BENZODIAZEPINE SCREEN NEG NEGATIVE [facility] Mininum Detectable Limit is 300 ng/mL. COCAINE SCREEN NEG NEGATIVE [facility] Minimum Detectable Limit is 300 ng/mL. CANNABINOID SCREEN POS NEGATIVE [facility] Minimum Detectable limit is 50 ng/dL. HEROIN SCREEN NEG NEGATIVE [facility] Minimum Detectable limit is 10 ng/dL. A ll POSITIVE or BORDER results are unconfirmed. Please contact the laboratory if a reference testing confirmation is needed. ID Date Data Source [id number] 02/01/2020 01:41:00 PM [facility] [place] [facility] [address] HEALTH INFORMATION MANAGEMENT ED/UC Physician Report : [id number] Signed Patient: Teo Knight Acct:[id number] Unit: [facility] [id number] : 1970 Arrival Date: 02/01/20 Age/Sex: 50 / M Arrival Time: 1320 Copies to: PCP,No Psych HPI/ROS General Chief Complaint: Psychiatric Complaint Stated Complaint: MH Eval Stated Complaint: MH Eval Source: Patient and I have reviewed available Ancillary/nursing staff documentation History of Present Illness Initial Comments: Patient reports that he is depressed and suicidal. He was at outpatient [facility] and was sent to the emergency room for medical clearance. Patient reports that he does not have any plan but will just do it. Patient reports that he used illicit drugs 2 days ago. Onset/Timin Time interval: Days(s) Associated Psychiatric Symptoms: Reports Depression and Suicidal ideation Quality: Reports Changing over time Improves With: Reports None Worsens With: Reports Drug use Context: Reports Recent drug abuse Associated Symptoms: Denies Headache, Insomnia, Nausea, Shortness of breath and Vomiting Treatments Prior to Arrival: Reports None If Self Harm: Reports Admits thoughts of self harm and Has plan; Denies Has acted on plan Related Data Home Medications Medication Instructions Recorded sertraline [Zoloft] mg PO DAILY 02/01/20 Allergies iodine [Iodine] Allergy (Intermediate, Verified 02/01/20 00:00) swelling Penicillins Allergy (Verified 02/01/20 00:00) NEUROLOGIC- SEIZURES aspirin [Aspirin] Adverse Reaction (Verified 02/01/20 00:00) BLOOD DISORDER Review of Systems Review of Systems All systems: Reviewed and negative except as stated in HPI. General: Denies Fever and Chills ENT: Denies Ear ache and Sore throat Cardiac: Denies Chest pain and Palpitations Respiratory: Denies Cough and Shortness of Breath GI: Denies Pain and Nausea Neuro: Denies Headache, Dizziness and Weakness Musculoskeletal: Denies Neck Pain and Back Pain Skin: Denies Bruising and Rash Psychiatric: Reports Depression and Suicidal; Denies Anxiety Social History Social History Other: Single, has 4 children. 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 Mother History of cancer Physical Exam Physical Exam Physical Exam: Physical Exam General appearance: Alert and In no apparent distress Head Head Exam: Atraumatic and Normcephalic Eye Eye Exam: EOMI, Conjunctiva normal Neck Neck Exam: Full ROM and Supple Cardiac Cardiac: Present: Regular rate and rhythm Heart Sounds: Present: S1 and S2 Lung/Chest Lung/Chest Exam: Clear, Normal Exchange and No chest wall tenderness Back Back Exam: Full ROM and No Deformity Lower Extremity Lower Extermity Normal: Full ROM and Nontender Neuro Neuro Normal: Alert, Oriented x 3, Fluent speech Psych Psych Normal: Depressed suicidal Skin Skin exam: Dry, Intact and Warm Course Course Course Course Narrative: 1541: Lab results reviewed. Hematology shows normal white blood cell count. H H is 14.4 and 42.2. Serum chemistries are non actionable. Blood glucose is 49. Patient is given food in emergency room. Urinalysis is negative. Drug screen is positive for marijuana. I discussed the case with Dr. Martinez, he accepted the patient for admission. Patient will be admitted to [facility] involuntarily. Medical Decision Making/CCT Lab Data Result diagrams: 02/01/20 14:34 02/01/20 14:34 Labs reviewed: Yes Hyperglycemia Identified Hyperglycemia identified in patient?: No Medication/Allergies Review Medication/Allergies Review Home Medication and Allergy review: I reviewed patients allergies, home medications, and new prescriptions Blood Pressure Blood pressure: Pt BP not elevated Discharge Plan Disposition Clinical Impression: Depression with suicidal ideation, Polysubstance abuse Provider stated Dispo: Admitted Condition: Good Prescriptions: No Action sertraline [Zoloft] 25 mg Tablet PO DAILY RF: 0 Referrals: PCP,No [Primary Care Provider] - Date/Time <<Signature on File>> Initializing User: Dwight Lowery MD 02/01/20 1341 Signed by: Dwight Lowery MD 02/01/20 9473 Name Value Range Interpretation Code Description Data Lottie rce(s) Supporting Document(s) ID Date Data Source [id number] 02/01/2020 01:25:[address] [facility] Name Value Range Interpretation Code Description Data Lottie rce(s) Supporting Document(s) SARS-CoV-2 (COVID-19) RNA [Presence] in Nasopharynx by CULLEN with non-probe detection [facility] This lab was ordered by [facility] and reported by [facility]. ID Date Data Source [id number] 02/01/2020 04:46:00 PM [facility] Patient presents as: Asymptomatic COVID Reason [place] Admission Priority Name Value Range Interpretation Code Description Data Lottie rce(s) Supporting Document(s) ADENOVIRUS Not Detected NotDetected [facility] CORONAVIRUS 229E Not Detected [facility]ed [facility] This is NOT the novel coronavirus COVID -19 CORONAVIRUS HKU1 Not Detected [facility] This is NOT the novel coronavirus COVID -19 CORONAVIRUS NL63 Not Detected NotDetected [facility] This is NOT the novel coronavirus COVID -19 CORONAVIRUS OC43 Not Detected NotDetected [facility] This is NOT the novel coronavirus COVID -19 COVID 19 (SARS-CoV-2) NOT-DETECTED NOTDETECTED [facility] THIS IS THE NOVEL CORONAVIRUS COVID-19 HUMAN METAPNEUMOVIRUS Not Detected NotDetected [facility] HUMAN RHINOVIRUS/ENT Not Detected NotDetected [facility] INFLUENZA A Not Detected NotDetected [facility] INFLUENZA B Not Detected NotDetected [facility] PARAINFLUENZA VIRUS 1 Not Detected NotDetected [facility] PARAINFLUENZA VIRUS 2 Not Detected NotDetected [facility] PARAINFLUENZA VIRUS 3 Not Detected NotDetected [facility] PARAINFLUENZA VIRUS 4 Not Detected NotDetected [facility] RESPIRATORY SYNCY VIR Not Detected NotDetected [facility] BORDETELLA PARAPERTUS Not Detected NotDetected [facility] BORDETELLA PERTUSSIS Not Detected NotDetected [facility] CHLAMYDIA PNEUMONIAE Not Detected NotDetected [facility] MYCOPLASMA PNEUMONIAE Not Detected NotDetected [facility] The Respiratory Panel is a multiplexed nucleic acid/PCR test. A negative result does not rule out the presence of PCR inhibitors in the patient sample or assay-specific nucleic acid concentrations below the level of detection by the assay. ID Date Data Source [id number] 02/01/2020 12:27:00 AM EST [place] [address] [address] HEALTH INFORMATION MANAGEMENT ED/UC Physician Report : [id number] Signed Patient: Teo Knight Acct:[id number] Unit: [facility] [id number] : 1970 Arrival Date: 01/31/20 Age/Sex: 50 / M Arrival Time: 2351 Copies to: Katerine Ruano MD Psych HPI/ROS General Chief Complaint: Psychiatric Complaint Stated Complaint: MH Eval Stated Complaint: MH Eval Source: Patient, RN notes reviewed and I have reviewed available Ancillary/nursing staff documentation Mode of arrival: Ambulatory Limitations: Reports No limitations History of Present Illness Initial Comments: 50-year-old male presents for psychiatric evaluation. Patient reports I want to see mental health. Patient is very evasive and does not want to answer further questions. Patientreports I am depressed. Patient denies suicidal or homicidal ideation. Related Data Home Medications Medication Instructions Recorded sertraline [Zoloft] mg PO DAILY 02/01/20 Allergies iodine [Iodine] Allergy (Intermediate, Verified 02/01/20 00:00) swelling Penicillins Allergy (Verified 02/01/20 00:00) NEUROLOGIC-SEIZURES aspirin [Aspirin] Adverse Reaction (Verified 02/01/20 00:00) BLOOD DISORDER Review of Systems Review of Systems All systems: Reviewed and negative except as stated in HPI. Psychiatric: Reports Depression; Denies Anxiety, Homicidal and Suicidal Social History Social History Other: Single, has 4 children. 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 Mother History of cancer Physical Exam Physical Exam Physical Exam: GENERAL APPEARANCE: Well developed, well nourished, in no acute distress. SKIN: Inspection of the skin reveals no rashes, ulcerations or petechiae. HEENT: The sclerae were anicteric and conjunctivae were pink and moist. EOMI. ANNA MARIE. External inspection of the ears unremarkable. No lesions in the mouth or pharynx. NECK: Supple and symmetric. CHEST/LUNGS: Auscultation of the lungs revealed normal breath sounds without any other adventitious sounds or rubs. Non-tender chest wall. CARDIOVASCULAR: Regular rate and rhythm without any murmurs, gallops, rubs. Peripheral pulses were 2+ and symmetric. ABDOMEN: Soft and nontender with normal bowel sounds MUSCULOSKELETAL: Gait was normal. There was no tenderness or effusions noted. Muscle strength and tone were normal. NEUROLOGIC: Alert and oriented x 3. Normal affect. Gait was normal. Normal deep tendon reflexes with no pathological reflexes. Sensation to touch was normal. PSYCH: Normal affect. Evasive to questioning Course Vital Signs Vital signs: Vital Signs 02/01/20 00:01 Temperature 98 F Pulse Rate 74 Respiratory Rate 16 Blood Pressure 123/60 O2 Sat by Pulse Oximetry 96 Medical Decision Making/CCT EKG Interpretation Complete If EKG was done has it been read?: N/A Medication/Allergies Review Medication/Allergies Review Home Medication and Allergy review: I reviewed patients allergies, home medications, and new prescriptions Blood Pressure Blood pressure: Pt BP not elevated Medical Decision Making Medical Decision Makin-year-old male presents for psychiatric evaluation. Patient is well- appearing and nontoxic on presentation. Vital signs stable. Patient denies suicidal or homicidal ideation. While waiting for mental health evaluation in the morning patient reported that he actually feels he needs substance abuse evaluation. Patient would like to take himself to [facility]. Patient discharged to follow-up with substance abuse as an outpatient as well as mental health. Discharge Plan Disposition Clinical Impression: Encounter for psychological evaluation Provider stated Dispo: Discharged Condition: Stable Instructions: Depression (ED) Prescriptions: No Action sertraline [Zoloft] 25 mg Tablet PO DAILY RF: 0 Referrals: *[facility] Palacios [Provider Group] - 1 day Katerine Ruano MD [Primary Care Provider] - Stand Alone Forms: Portal Instructions Patient agreeable to discharge: Patient/Guardian understands and is agreeable to discharge plan Provider in triage note Vital Signs Vital Signs: I O (Last 24 Hours) 01/30/20 01/31/20 02/01/20 23:59 23:59 23:59 Other: Weight 64 kg Vital Signs (Last 8 Hours) Temp Pulse Resp BP Pulse Ox 02/01/20 00:01 98 F 74 16 123/60 96 Date/Time <<Signature on File>> Initializing User: Lili Joyce DO 02/01/20 0027 Signed by: Lili Joyce DO 02/01/20 0636 Name Value Range Interpretation Code Description Data Lottie rce(s) Supporting Document(s) Procedure Vital Signs ID Date Data Source UNK Name Value Range Interpretation Code Description Data Source(s) Body surface area Derived from formula 1.93 m2 1.93 m2 [facility] ([facility]) Body weight 73.483 kg 73.483 kg [facility] ([facility]) [place] body weight 172 [lb_av] 172 [lb_av] [facility] ([facility]) Body mass index (BMI) [Ratio] 22.6 kg/m2 22.6 k g/m2 [facility] ([facility]) Body weight 162.00 [lb_av] 162.00 [lb_av] [facility] Body height 71 [in_i] 71 [in_i] [facility] ([facility]) 5'11" Body temperature 97.5 [degF] 97.5 [degF] [facility] ([facility])
[2020-03-29] MEDS ORDERED: TRAZ-252 (18:22)
[2020-03-29] MEDS ORDERED: RISP-8 (18:22)
[2020-03-29] MEDS ORDERED: OLAN5TAB (18:22)
--- NOTE | 2020-03-29 19:34 | REP ---
INDICATION: CHEST PAIN. COMPARISON: None. TECHNIQUE: PA and lateral FINDINGS: The superior mediastinal structures are midline. The cardiac silhouette is unremarkable in size, shape, and position. The diaphragmatic surfaces of the lungs are regular, and the costophrenic angles are clear. The pulmonary mcgarry are clear. The imaged osseous structures are intact. IMPRESSION: There is no acute cardiopulmonary disease. <Electronically signed by Walter Blackmon > 03/29/201930
[2020-03-29] MEDS ORDERED: KETOROLAC 30 MG/ML 1ML VIAL IV ONE (19:45)
[2020-03-29 20:05] LABS: BASO % 0.4 % (0.0-1.0); EOS # 0.3 10^3/uL (0.0-0.5); EOS % 2.6 % (0.0-3.0); HEMATOCRIT 45.5 % (42.0-52.0); HEMOGLOBIN 14.6 g/dl (13.5-17.5); LYMPH # 3.2 10^3/uL (1.5-5.0); LYMPH % 28.5 % (24.0-44.0); MEAN CORPUSCULAR HEMOGLOBIN 32.8 pg (27.0-33.0); MEAN CORPUSCULAR HGB CONC 32.1 g/dl (32.0-36.5); MEAN CORPUSCULAR VOLUME 102.2 fl (80.0-96.0); MONO % 8.7 % (0.0-5.0); NEUTROPHILS # 6.7 10^3/uL (1.5-8.5); NEUTROPHILS % 59.4 % (36.0-66.0); PLATELET COUNT, AUTOMATED 235 10^3/uL (150-450); RED BLOOD COUNT 4.45 10^6/uL (4.30-6.10); WHITE BLOOD COUNT 11.3 10^3/uL (4.0-10.0)
--- NOTE | 2020-03-29 20:05 | ECGEPIP ---
[facility] - ED Test Date: 2020-03-29 Pat Name: MARLENE KNIGHT Department: Room: - Gender: Male It Support Manager: NARCISO : 1970 Requested By: LOREN Sanders Order Number: [id number] Reading MD: Ella Kam Measurements Intervals [place] Rate: 75 P: 72 GA: 129 QRS: 70 QRSD: 85 T: 66 QT: 376 QTc: 421 Interpretive Statements SINUS RHYTHM POSSIBLE RIGHT VENTRICULAR CONDUCTION DELAY No prior Electronically Signed on 03-29-2020 20:05:10 EST by Ella Kam
--- OUTSIDE RECORDS SUMMARY | 2020-03-29 20:07 | CCD ---
Author Author [facility] Organization [facility] Address Unknown Phone Unavailable Care Team Providers Care Ecg Technician Name Role Phone Zeb, T Justino TRANSCRIPTIONIST Unavailable Unavailable Zeb, T Justino TRANSCRIPTIONIST Unavailable Unavailable Zeb, T Justino TRANSCRIPTIONIST Unavailable Unavailable Zeb, T Justino TRANSCRIPTIONIST Unavailable Unavailable Zeb, T Justino TRANSCRIPTIONIST Unavailable Unavailable Zeb, T Justino TRANSCRIPTIONIST Unavailable Unavailable Zeb, T Justino TRANSCRIPTIONIST Unavailable Unavailable Liane Thakur MD Unavailable Unavailable [...] Unavailable Liane Thakur MD Unavailable Unavailable Liane Thakru MD Unavailable Unavailable Mollison, Liane Bernardo MD Unavailable Unavailable Mollison, Liane Bernardo MD Unavailable Unavailable Mollison, Liane Bernardo MD Unavailable Unavailable Mollison, Liane Bernardo MD Unavailable Unavailable Mollison, Liane Bernardo MD Unavailable Unavailable Mollison, Liane Bernardo MD Unavailable Unavailable Mollison, Liane Bernardo MD Unavailable Unavailable MichaelLopez [facility] Unavailable Unavailable Beverley, Wajeeh MD Unavailable Unavailable [...] Unavailable Unavailable Beverley, Wajeeh MD Unavailable Unavailable Joyce ., Lili DO Unavailable Unavailable Joyce ., Lili DO Unavailable Unavailable Edil Pleitez [facility] Unavailable Unavailable Kvng Matute MD Unavailable [...] is protected by Article 27-F of the [facility] Public Health law. If you continue you may have access to information: Regarding HIV / AIDS; Provided by facilities licensed or operated by the [facility] Office of Mental Health; or Provided by the [facility] Office for People With Developmental Disabilities. If such information is present, then the following [facility] mandated warning applies: This information has been [...] law may result in a fine or mcfp sentence or both. A general authorization for the release of medical or other information is NOT sufficient authorization for further disc losure. Allergies and Adverse Reactions Type Description Substance Reaction Status Data Source(s ) Drug allergy aspirin [facility]in [facility]LOOD [facility] iodine iodine swelling [place] [facility] Drug allergy Penicillins Penicillin [facility] Encounter Providers Location Date Indications Data Source(s ) Office Visit Attender: Az Garcia/Mimi/Christopher/Aimee adhikaril 02/25/2020 10:10:00 AM EST [facility] ([facility] Outpatient Attender: Edil Pleitez [facility] 02/23/2020 08:15 :00 AM EST [facility] Outpatient Attender: Edil Pleitez [facility] 1 04/25/2019 08:00:00 AM EST - 02/23/2020 08:58:00 AM EST [facility] Patient discharged. Outpatient Attender: Jaydon Rodriguez [facility] 02/10/2020 11:00 :00 AM EST [facility] Inpatient Attender: Kvng Matute MDAttender: Lili Molina [facility] .Admitter: Kvng Matute MD 02/01/2020 06:00:00 PM EST - 02/06/2020 10:53:00 AM ES T Depression/SI/Substance Abuse [facility] Depression/SI/Substance Abuse Patient discharged. Outpatient Attender: Kvng Reidit ter: Kvng Matute MDConsultant: Kvng Matute MD 02/01/2020 06:00:00 PM EST Depression/SI/Substan ce Abuse [facility] Depression/SI/Substance Abuse Outpatient Attender: Kvng Reidit ter: Kvng Matute MDConsultant: Kvng Matute MD 02/01/2020 06:00:00 PM EST Depression/SI/Substan ce Abuse [facility] Depression/SI/Substance Abuse Outpatient Attender: Kvng Colon MDAdmit ter: Kvng Colon MDConsultant: Kvng Colon 02/01/2020 06:00:00 PM EST Depression/SI/Substan ce Abuse [facility] Depression/SI/Substance Abuse Outpatient Attender: Kvng Colon MDAdmit ter: Kvng Colon MDConsultant: Kvng Colon 02/01/2020 06:00:00 PM EST Depression/SI/Substan ce Abuse [facility] Depression/SI/Substance Abuse Outpatient Attender: Kvng Colon MDAdmit ter: Kvng Colon MDConsultant: Kvng Colon 02/01/2020 06:00:00 PM EST Depression/SI/Substan ce Abuse [facility] Depression/SI/Substance Abuse Outpatient Attender: Justino Carrington NP 02/01/2020 05:57:00 PM EST Eval [facility] Eval Inpatient Attender: Kvng Matute MDAtten codie: Dwight Lowery MDAdmitter: Kvng Matute MD 02/01/2020 01:20:00 PM EST - 02/01/2020 05:59:00 PM EST Eval [facility] Eval Admission cancelled. Disregard status an d admitted date. Insurance Providers Payer name Policy type / Coverage type Policy ID Covered alliance party ID Covered alliance party's relationship to yung Policy Yung Plan Information KIAN [id number] SP [id number] 200 [place] [id number] S [id number] SELF PAY KIAN [id number] SP [id number] SELF PAY KIAN [id number] SP [id number] 200 SELF PAY KIAN [id number] SP [id number] 200 KIAN [id number] SP [id number] SELF PAY KIAN [id number] SP [id number] 200 SELF PAY KIAN [id number] SP [id number] 200 SELF PAY KIAN [id number] SP [id number] 200 SELF PAY KIAN [id number] SP [id number] 200 KIAN [id number] SP [id number] 200 SELF PAY MEDICAID [facility] [id number] SP AG [id number] SELF PAY MEDICAID [id number] Kareen [id number] SELF PAY MEDICAID [facility] [id number] SP AG [id number] MEDICAID [facility] [id number] SP AG [id number] SELF PAY MEDICAID [facility] [id number] SP AG [id number] SELF [place]Y [place] [id number] SP AG [id number] SELF PAY SELF PAY MEDICAID [facility] [id number] SP AG [id number] MEDICAID [facility] [id number] SP AG [id number] SELF PAY SELF PAY MEDICAID [facility] [id number] SP AG [id number] SELF PAY MEDICAID [facility] [id number] SP AG [id number] SELF PAY SELF PAY SELF PAY SELF PAY MEDICAID [facility] [id number] SP AG [id number] MEDICAID [facility] [id number] SP AG [id number] MEDICAID [facility] [id number] SP AG [id number] SELF PAY UNAVAILABLE SP UNAVAILA BLE MEDICAID [facility] [id number] SP AG [id number] Problems, Conditions, and Diagnoses Code Display Name Description Problem Type Effective Dates Data Source(s) F32.9 Major depressive disorder, single episod e, unspecified F32.9 - Major depressive disorder, single episode, unspecified Diagnosis 02/22 08:15:00 AM EST [facility] F17.200 Nicotine dependence, unspecified, uncomp licated F17.200 - Nicotine dependence, unspecified, uncomplicated Diagnosis 02/01/2020 06:00:00 P M EST [facility] F15.90 Other stimulant use, unspecified, uncomp licated F15.90 - Other stimulant use, unspecified, uncomplicated Diagnosis 02/01/2020 06:00:00 PM EST [facility] F12.10 Cannabis abuse, uncomplicated F12.10 - Cannabis abuse, uncomplicated Diagnosis 02/01/2020 06:00:00 PM EST [facility] 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, 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, unspecified F19.959 - Other psychoactive substance use, 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 ID Date Data Source [id number] 02/11/2020 09:00:00 PM EST [facility] Name Value Range Interpretation Code Description Data Lottie rce(s) Supporting Document(s) SARS coronavirus 2 RNA [Presence] in Res piratory specimen by CULLEN with probe detection [facility] This lab was ordered by [facility] a nd reported by [facility]. ID Date Data Source [id number] 02/01/2020 05:57:00 PM EST [address] [address] HEALTH INFORMATION MANAGEMENT History and Physical Report : [id number] Signed Patient: Teo Knight Acct:[id number] [facility] t: [id number] : 1970 Loc: ED Room/Bed: Age/Sex: 50 [...] [facility]. 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/PSH Medical History [...] % (Auto) 45.0 Lymph % (Auto) 40.1 Harper % (Auto) 11.6 Eos % (Auto) 2.2 Baso % (Auto) 0.9 Nucleat RBC Rel Count Not Reportable Gran # 2.60 Lymph # (Auto) 2.3 Harper # (Auto) 0.67 Eos # (Auto) 0.13 [...] Urine Color Urine Appearance Urine pH Specific [place] (Man) Urine Protein Urine Glucose (UA) Urine [...] MPV Gran % (Auto) Lymph % (Auto) Harper % (Auto) Eos % (Auto) Baso % (Auto) Nucleat RBC Rel Count Gran # Lymph # (Auto) Harper # (Auto) Eos # (Auto) Baso # (Auto) Immature Gran # (Auto) Absolute Nucleated RBC Immature Gran % Sodium Potassium Chloride Carbon Dioxide Anion Gap BUN Creatinine Estimated GFR (MDRD) BUN/Creatinine Ratio Glucose POC Glucose Calcium Total Bilirubin AST ALT Alkaline Phosphatase Total Protein Albumin Globulin Albumin/Globulin Ratio Urine Color YELLOW Urine Appearance CLEAR Urine pH 5.0 Specific [place] (Man) 1.019 Urine Protein NEGATIVE Urine Glucose [...] charges for this visit?: Yes Inpt Consult [id number] Cons Level 2: Yes Signed By:Justino Carrington <<Signature on File>> Signed Date/Time: 02/01/201824 Co-Signer: Xin Sahw MD Co-Signed Date/Time: 02/02/20 0731 Initializing User: Justino Carrington NP 01/31 56 56 Name Value Range Interpretation Code Description Data Lottie rce(s) Supporting Document(s) ID Date Data Source [id number] 02/01/2020 05:33:53 PM EST [facility] Name Value Range Interpretation Code Description Data Lottie rce(s) Supporting Document(s) EKG/ECG IN ED [facility] [file] [id number]VQqOmi8nfBbwPrN9wCEuy+hernández/wyXWuuUW9yHWU8OkI [file] JOSE A/5VVaglmJuq3sZeEIqj/xxoyHKk6tMz1iI6wCCM B8r/CUS6FHyvMa124CSTAV3NEQvmOVoY8bEyV85gee0ycelbE/rZkKT7CNyo3jWB05KY8pV2dO2evtcR ZjH76BDgnMvv2LbzJD9T70i7IccPltNmf8btzrW4ofteGXushoDLh39NzuF01a19Zdf63UJtv1tF5OjI CNMXmrULlLb1TtUZxLFc6coPNuwFviSSBAM911xDd6 zL+LAuMf0NUrH2hzR5Kh9rASSWTppDFnsA435YCXbCC7P2oWVB7h8S9S7YSebSj082ZxbpcmYoxGQFZ4 ui3nz5Fnn4utenOKwqS4qSkwfnktE4wvLS85pV1i18Ykq93YTih3fCllEkYN8EBGujXDeY4yHuU85unf 1qVLKA+X/jymnffjPthb7hNT2ZT8rG8uS2zxtaEYpX ZOxfvctiRJW29QatVtuBya5SI/3FHKm4PPYc0TdxL0nwV0rlk4sFPptDWZxpCSp2vhfbG/tlqmY3wuDw pUdmmba2/vEwVNTB34PgyMW6YDwqX3w+dH3ucqXXwrVCw3yRY+mVGbs5pYcVHLiKxAZIqjf/2JEsBuy0 ypVYys7zfJGOChH8C58t7hEINxbhCdlksSLX6Fpizw JDLYare/BQM209YS4rHNsIAfXZnlHSwL1Zm3HkYz8uv61ebt49/wD+F2/D3/oYf/JK4/8AjdAHXaLren +X0Kz3sExsn1Qqv1qmdg5iQMgtpEBCNnS4/aXQewA42M+zETxB/wAI7Yz+aZdS/d18w2floqLNVYtZrw YXa1oMtlg9FA1T4O0WRc7pLKj1X+0l6pyOy0nZJAVL lfbsTyOvG6Rf9Q/Zf/Fb/cDLYka9j/MK+2/iUoJG6Orxc9o4SFh3u6lPg0n050KwRddyzl3VoLDB6D6e jj+dm1dD8RNUzEGrKjArWx76J+1iR183f8yu1tAYuInjd5h4gB7KywkmYU4AwaJIQGskfkOZvftzOsha fQKLJSRSycfoBnytjK3t4Eag841N+m3+JiKl5A [file] JOSE A/0LWesgnFex4lRkUXbe/gwdfZKu1cCm5bDwJVowT/UEMCaBfm6sgOGks5lkKZNc4vyoIkfoSoSP+X [file] Line Service Attendant/nNCumYLtL1iuqNwMsflBaSCHMzUiBCna7VljCjiLliz8jiY7iLnFSHBsicRo7mtQURBze4Muffv6r cooAKKKKACvnW+ftMVpGvvqsMlTkyaX5XHfR1q1+U1sgU8bWwNU+Y5yHU/McvPIXxskijllV816iR+Bijan [file] d6TnclH4rdPmAQqkLZB1AvtZUtXhXV1F ID Date Data Source "" 02/01/2020 05:33:00 [place] [address] Patient Name: Teo Knight Exam Date: 02/01/20 : 1970 CC: EKG/ECG in ED Ordering Doctor: Dwight Lowery MD Attending Doctor: Dwight Lowery MD CC: EKG/ECG in ED APPROVED REPORT ECG MEASUREMENT Heart Rate 68 AXES NC 128 P 68 QRSd 89 QRS 80 QT 410 T 68 QTc 428 INTERPRETATION SINUS RHYTHM WITH SINUS ARRHYTHMIA POSSIBLE RIGHT VENTRICULAR CONDUCTION DELAY [RSR (QR) IN V1/V2] <Conclusion> SINUS RHYTHM WITH SINUS ARRHYTHMIA POSSIBLE RIGHT VENTRICULAR CONDUCTION DELAY [RSR (QR) IN V1/V2] End of diagnostic report for accession: [id number] Interpreted: Dwight Lowery MD 02/01/20 8756 Transcribed: Signed: Dwight Lowery MD 02/01/20 3764 Interpreted by: Dwight LoweryTranscribed by: Dwight Lowery Name Value Range Interpretation Code Description Data Lottie rce(s) Supporting Document(s) ID Date Data Source [id number] 02/03/2020 12:50:00 PM EST [facility] Name Value Range Interpretation Code Description Data Lottie rce(s) Supporting Document(s) RAPID PLASMA REAGIN NON-REACTIVE NONREACTIVE [facility] Test performed by charcoal methodology ID Date Data Source [id number] 02/03/2020 03:17:00 AM EST [facility] Name Value Range Interpretation Code Description Data Lottie rce(s) Supporting Document(s) GLYCOSYLATED HGBA1C 5.0 % 4.1-6.5 N [facility] ID Date Data Source [id number] 02/03/2020 03:17:00 AM [facility] Name Value Range Interpretation Code Description Data Lottie rce(s) Supporting Document(s) TRIGLYCERIDES 88 MG/DL 45-150 N [facility] CHOLESTEROL 197 MG/DL 125-200 N [facility] LDL CHOLESTEROL 114 MG/DL 50-130 N [facility] HDL CHOLESTEROL 65 MG/DL 39-96 N [facility] CHOL/HDL RATIO 3.0 0-4.9 N [facility] ID Date Data Source [id number] 02/03/2020 03:17:00 AM [facility] Name Value Range Interpretation Code Description Data Lottie rce(s) Supporting Document(s) VITAMIN B12 560 PG/ML 211-2000 N [facility] ID Date Data Source [id number] 02/03/2020 03:17:00 AM [facility] Name Value Range Interpretation Code Description Data Lottie rce(s) Supporting Document(s) FOLATE 19.94 NG/ML 3.40-24.00 N [facility] ID Date Data Source [id number] 02/03/2020 03:17:00 AM [facility] Name Value Range Interpretation Code Description Data Lottie rce(s) Supporting Document(s) Vitamin D,25-HYDROXY 48.8 ng/ml 30-100 N [facility] Vitamin D Status Range De ficiency <20 ng/ml Insufficiency 20-29.9 ng/ml Sufficiency 30-100 ng/ml Toxicity >100 ng/ml Patients should not be tested for 72 hours post fluorescein dye angiography. A false elevation of result may occur. ID Date Data Source [id number] 02/03/2020 03:17:00 AM EST [facility] Name Value Range Interpretation Code Description Data Lottie rce(s) Supporting Document(s) TSH 1.009 uIU/ML 0.470-4.200 N [facility] Patients should not be tested for 72 ho urs post fluorescein dye angiography. A false depression of result may occur. ID Date Data Source [id number] 02/01/2020 02:59:00 PM EST [facility] Has Patient Fasted For The Past 12 Hour s? N Has Patient Fasted For The Past 12 Hour s? N Has Patient Fasted For The Past 12 Hour s? N Has Patient Fasted For The Past 12 Hour s? N Name Value Range Interpretation Code Description Data Lottie rce(s) Supporting Document(s) WHITE BLOOD COUNT 5.78 10^3/uL 4.00-10.50 N [facility]alth RED BLOOD COUNT 4.27 10^6/uL 4.30-5.80 L [facility] th HEMOGLOBIN 14.4 G/DL 13.0-17.5 N [facility] HEMATOCRIT 42.2 % 41.0-53.0 N [facility] MCV 98.8 FL 80.0-100.0 N [facility] MCH 33.7 PG 27.0-34.0 N [facility] MCHC 34.1 G/DL 32-36 N [facility] RDW 13.0 % 11.5-14.5 [facility] PLATELET COUNT 197 10^3/uL 130-400 [facility] MPV 8.8 FL 8.7-13.2 [facility] GRAN % (AUTO) 45.0 % 42.0-75.0 N [facility] LYMPH % (AUTO) 40.1 % 20.0-51.0 [facility] MONO % (AUTO) 11.6 % 2.0-15.0 N [facility] EOS % (AUTO) 2.2 % 0.0-11.0 N [facility] BASO % (AUTO) 0.9 % 0.0-2.0 [facility] IG % (AUTO) 0.2 % 1.00-5.00 [facility] IG # (AUTO) 0.0 10^3/uL <0.5 [facility] GRAN # (AUTO) 2.60 10^3/uL 1.50-6.50 N [facility] LYMPH # (AUTO) 2.3 k/uL 1.0-5.0 N [facility] MONO # (AUTO) 0.67 k/uL 0.20-1.50 N [facility] EOS # (AUTO) 0.13 10^3/uL 0.00-1.10 N [facility] BASO # (AUTO) 0.05 10^3/uL 0.00-0.20 N [facility] ID Date Data Source [id number] 02/01/2020 03:30:00 PM EST [facility] Has Patient Fasted For The Past 12 Hour s? N Has Patient Fasted For The Past 12 Hour s? N Has Patient Fasted For The Past 12 Hour s? N Has Patient Fasted For The Past 12 Hour s? N Name Value Range Interpretation Code Description Data Lottie rce(s) Supporting Document(s) SODIUM 140 MEQ/L 135-145 N [facility] POTASSIUM 4.1 MEQ/L 3.5-5.3 N [facility] CHLORIDE 107 MEQ/L 94-110 N [facility] CARBON DIOXIDE 28 MEQ/L 22-33 N [facility] ANION GAP 9 5-16 N [facility] BLOOD UREA NITRO 25 MG/DL 7-25 N [facility] CREATININE 0.8 MG/DL 0.6-1.4 N [facility] GFR > 90.0 ML/MIN [facility] Stage G1 - Normal or high [...] years only. BUN/CREAT RATIO 31 8-36 [facility] GLUCOSE 49 MG/DL 70-100 LL [facility] Critical Results called to [phone] by [id number] at 1529 on 02/01/20 CA 9.5 MG/DL 8.7-10.5 N [facility] BILIRUBIN,TOTAL 0.8 MG/DL 0.1-1.3 N [facility] AST 87 U/L 5-40 H [facility] ALT 152 U/L 5-48 H [facility] ALKALINE PHOSPHATASE 86 U/L 40-140 N [facility] alth TOTAL PROTEIN 7.0 G/DL 5.9-8.3 N [facility] ALBUMIN 4.6 G/DL 3.0-5.1 N [facility] GLOBULIN 2.4 G/DL 1.5-3.5 N [facility] ALB/GLOB RATIO 1.9 G/DL 1.0-3.0 N [facility] ID Date Data Source [id number] 02/01/2020 03:30:00 PM [facility] Has Patient Fasted For The Past 12 Hour s? N Has Patient Fasted For The Past 12 Hour s? N Has Patient Fasted For The Past 12 Hour s? N Has Patient Fasted For The Past 12 Hour s? N Name Value Range Interpretation Code Description Data Lottie rce(s) Supporting Document(s) SALICYLATE < 3.0 MG/DL 2.8-20.0 N [facility] ID Date Data Source [id number] 02/01/2020 03:30:00 PM [facility] Has Patient Fasted For The Past 12 Hour s? N Has Patient Fasted For The Past 12 Hour s? N Has Patient Fasted For The Past 12 Hour s? N Has Patient Fasted For The Past 12 Hour s? N Name Value Range Interpretation Code Description Data Lottie rce(s) Supporting Document(s) ACETAMINOPHEN < 2.0 UG/ML 10-30 L [facility] High levels of N-acetylcysteine (used t o treat Acetaminophen overdose) may cause interference and cause a negative bias in the Acetaminophen result. ID Date Data Source [id number] 02/01/2020 03:30:00 PM [facility] Has Patient Fasted For The Past 12 Hour s? N Has Patient Fasted For The Past 12 Hour s? N Has Patient Fasted For The Past 12 Hour s? N Has Patient Fasted For The Past 12 Hour s? N Name Value Range Interpretation Code Description Data Lottie rce(s) Supporting Document(s) BLOOD ALCOHOL < 0.03 % <0.03 [facility] ID Date Data Source [id number] 02/01/2020 03:04:00 PM EST [facility] Name Value Range Interpretation Code Description Data Lottie rce(s) Supporting Document(s) COLOR,UR YELLOW YELLOW [facility] APPEARANCE,UR CLEAR CLEAR [facility] PH,UR 5.0 5.0-8.0 [facility] SPECIFIC GRAVITY,UR 1.019 1.002-1.035 [facility] PROTEIN,UR NEGATIVE MG/DL NEGATIVE [facility] GLUCOSE, UR 150 MG/DL NEGATIVE A [facility] KETONES,UR TRACE MG/DL NEGATIVE [facility] OCCULT BLOOD,UR NEGATIVE NEGATIVE [facility] NITRATE,UR NEGATIVE NEGATIVE [facility] LEUKOCYTE ESTERASE ,UR NEGATIVE NEGATIVE [facility] BILIRUBIN,UR NEGATIVE NEGATIVE [facility] UROBILINOGEN,UR 4.0 EU MG/DL NEG-0-1.0 A [facility] ID Date Data Source [id number] 02/01/2020 03:11:00 PM [facility] Name Value Range Interpretation Code Description Data Lottie rce(s) Supporting Document(s) OPIATE SCREEN NEG NEGATIVE [facility] Minimum Detectable Limit is 300 ng/mL. BARBITURATE SCREEN NEG NEGATIVE [facility] Minimum Detectable Limit is 300 ng/mL. PHENCYCLIDINE SCREEN NEG NEGATIVE [facility] Minimum Detectable Limit is 25 ng/mL. AMPHETAMINE SCREEN NEG NEGATIVE [facility] Minimum Detectable Limit is 1000 mg/mL. BENZODIAZEPINE SCREEN NEG NEGATIVE [facility] Mininum Detectable Limit is 300 ng/mL. COCAINE SCREEN NEG NEGATIVE [facility] Minimum Detectable Limit is 300 ng/mL. CANNABINOID SCREEN POS NEGATIVE [facility] Minimum Detectable limit is 50 ng/dL. HEROIN SCREEN NEG NEGATIVE [facility] Minimum Detectable limit is 10 ng/dL. A ll POSITIVE or BORDER results are unconfirmed. Please contact the laboratory if a reference testing confirmation is needed. ID Date Data Source [id number] 02/01/2020 01:41:00 PM [facility] [address] [address] HEALTH INFORMATION MANAGEMENT ED/UC Physician Report : [id number] Signed Patient: Teo Knight Acct:[id number] Unit: [facility] [id number] : 1970 Arrival Date: 02/01/20 Age/Sex: 50 / M Arrival Time: 1320 Copies to: PCP,No Psych HPI/ROS General Chief Complaint: Psychiatric Complaint Stated Complaint: MH Eval Stated Complaint: MH Eval Source: Patient and I have reviewed available Ancillary/nursing staff documentation History of Present Illness Initial Comments: Patient reports that he is depressed and suicidal. 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 Patient will be admitted to [facility] involuntarily. Medical Decision Making/CCT Lab Data [...] 1341 Signed by: Dwight Lowery MD 02/01/20 1686 Name Value Range Interpretation Code Description Data Lottie rce(s) Supporting Document(s) ID Date Data Source [id number] 02/01/2020 01:25:00 PM EST [facility] Name Value Range Interpretation Code Description Data Lottie rce(s) Supporting Document(s) SARS-CoV-2 (COVID-19) RNA [Presence] in Nasopharynx by CULLEN with non-probe detection [facility] This lab was ordered by [facility] and reported by [facility]. ID Date Data Source [id number] 02/01/2020 04:46:00 PM [facility] Patient presents as: Asymptomatic COVID Reason [place] Admission Priority Name Value Range Interpretation Code Description Data Lottie rce(s) Supporting Document(s) ADENOVIRUS Not Detected NotDetected [facility] CORONAVIRUS 229E Not Detected [facility] This is NOT the novel coronavirus COVID -19 CORONAVIRUS HKU1 Not Detected [facility] This is NOT the novel coronavirus COVID -19 CORONAVIRUS NL63 Not Detected NotDetected [facility] This is NOT the novel coronavirus COVID -19 CORONAVIRUS OC43 Not Detected NotDetected [facility] This is NOT the novel coronavirus COVID -19 COVID 19 (SARS-CoV-2) NOT-DETECTED NOTDETECTED [facility] THIS IS THE NOVEL CORONAVIRUS COVID-19 HUMAN METAPNEUMOVIRUS Not Detected NotDetected [facility] HUMAN RHINOVIRUS/ENT Not Detected NotDetected [facility] INFLUENZA A Not Detected NotDetected [facility] INFLUENZA B Not Detected NotDetected [facility] PARAINFLUENZA VIRUS 1 Not Detected NotDetected [facility] PARAINFLUENZA VIRUS 2 Not Detected NotDetected [facility] PARAINFLUENZA VIRUS 3 Not Detected NotDetected [facility] PARAINFLUENZA VIRUS 4 Not Detected NotDetected [facility] RESPIRATORY SYNCY VIR Not Detected NotDetected [facility] BORDETELLA PARAPERTUS Not Detected NotDetected [facility] BORDETELLA PERTUSSIS Not Detected NotDetected [facility] CHLAMYDIA PNEUMONIAE Not Detected NotDetected [facility] MYCOPLASMA PNEUMONIAE Not Detected NotDetected [facility] The Respiratory Panel is a multiplexed nucleic acid/PCR test. A negative result does not rule out the presence of PCR inhibitors in the patient sample or assay-specific nucleic acid concentrations below the level of detection by the assay. 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 Patient discharged to follow-up with substance abuse [...] Derived from formula 1.93 m2 1.93 m2 [facility] ([facility]) Body weight 73.483 kg 73.483 kg [facility] ([facility]) [place] body weight 172 [lb_av] 172 [lb_av] [facility] ([facility]) Body mass index (BMI) [Ratio] 22.6 kg/m2 22.6 k g/m2 [facility] ([facility]) Body weight 162.00 [lb_av] 162.00 [lb_av] [facility] ([facility] Body height 71 [in_i] 71 [in_i] [facility] ([facility]) 5'11" Body temperature 97.5 [degF] 97.5 [degF] [facility] ([facility])
[2020-03-29 20:14] LABS: INR 0.9; PROTHROMBIN TIME 12.3 SECONDS (12.5-14.3)
[2020-03-29 20:15] LABS: PARTIAL THROMBOPLASTIN TIME 23.9 SECONDS (24.2-38.5)
[2020-03-29 20:42] LABS: ALT/SGPT 83 U/L (12-78); BILIRUBIN,DIRECT < 0.1 MG/DL (0.0-0.2); BILIRUBIN,TOTAL 0.3 MG/DL (0.2-1.0); BLOOD UREA NITROGEN 13 MG/DL (7-18); CARBON DIOXIDE LEVEL 32 MEQ/L (21-32); CHLORIDE LEVEL 105 MEQ/L (98-107); CK-MB VALUE MASS < 1.0 NG/ML (<3.6); CPK CREATINE PHOSPHOKINASE 57 U/L (39-308); FREE T4 0.72 NG/DL (0.76-1.46); GLOMERULAR FILTRATION RATE > 60.0 (>56); GLUCOSE, FASTING 86 MG/DL (70-100); LIPASE 96 U/L (73-393); MB/CK RELATIVE INDEX 1.75 (< OR =4); POTASSIUM SERUM 4.9 MEQ/L (3.5-5.1); SODIUM LEVEL 139 MEQ/L (136-145); TOTAL PROTEIN 6.8 GM/DL (6.4-8.2); TROPONIN I < 0.02 NG/ML (< 0.10)
[2020-03-29] MEDS ORDERED: KETOROLAC 60MG 2ML VIAL IM ONE (21:15)
[2020-03-29 21:45] VITALS: BP 127/74
[2020-03-29] MEDS ORDERED: NAPR-837 PO (22:08)
== END 2020-03-29 22:19 | disposition home or self-care (01) ==
LOC: M ED 18:04
DX: R07.9 Chest pain, unspecified (principal); F17.200 Nicotine dependence, unspecified, uncomplicated; F12.10 Cannabis abuse, uncomplicated; Z79.899 Other long term (current) drug therapy; Z88.0 Allergy status to penicillin
CPT/HCPCS: 71046; 80048; 80076; 82550; 82553; 83690; 84439; 84443; 85025; 85610; 85730; 87486; 87581; 87633; 87798; 93005; 93041; 94760; 96372; 96374; 99285; J1885

== ENCOUNTER 2020-06-30 20:27 | Inpatient (IN) | payer OTHER ==
[~2020-06-30] VITALS: Ht 182.9 cm; Wt 73.2 kg
[~2020-06-30 20:27] MED LIST changes: +NAPR-837 PO; +OLAN5TAB; +RISP-8; +TRAZ-252
[2020-06-30 22:04] LABS: HEMATOCRIT 42.2 % (42.0-52.0); HEMOGLOBIN 14.5 g/dl (13.5-17.5); MEAN CORPUSCULAR HEMOGLOBIN 31.9 pg (27.0-33.0); MEAN CORPUSCULAR HGB CONC 34.4 g/dl (32.0-36.5); MEAN CORPUSCULAR VOLUME 92.7 fl (80.0-96.0); PLATELET COUNT, AUTOMATED 202 10^3/uL (150-450); RED BLOOD COUNT 4.55 10^6/uL (4.30-6.10); WHITE BLOOD COUNT 11.4 10^3/uL (4.0-10.0)
[2020-06-30 22:07] LABS: AMPHETAMINES LEVEL URINE NEGATIVE (NEGATIVE); BARBITURATES URINE NEGATIVE (NEGATIVE); BENZODIAZEPINES URINE NEGATIVE (NEGATIVE); CANNABINOIDS URINE NEGATIVE (NEGATIVE); COCAINE METABOLITE URINE NEGATIVE (NEGATIVE); METHADONE URINE NEGATIVE (NEGATIVE); OPIATES URINE NEGATIVE (NEGATIVE); PHENCYCLIDINE URINE NEGATIVE (NEGATIVE)
[2020-06-30 22:37] LABS: RSV AMPLIFICATION NEGATIVE (NEGATIVE)
[2020-06-30 22:42] LABS: ACETAMINOPHEN LEVEL < 2.0 UG/ML (10.0-30.0); ALBUMIN 4.3 GM/DL (3.2-5.2); ALT/SGPT 132 U/L (12-78); BILIRUBIN,DIRECT 0.3 MG/DL (0.0-0.2); BILIRUBIN,TOTAL 1.1 MG/DL (0.2-1.0); BLOOD UREA NITROGEN 29 MG/DL (7-18); CARBON DIOXIDE LEVEL 27 MEQ/L (21-32); CHLORIDE LEVEL 101 MEQ/L (98-107); CREATININE FOR GFR 0.93 MG/DL (0.70-1.30); ETHYL ALCOHOL (ETHANOL) < 0.003 % (0.000-0.010); GLOMERULAR FILTRATION RATE > 60.0 (>56); GLUCOSE, FASTING 82 MG/DL (70-100); SALICYLATE LEVEL 2.6 MG/DL (5.0-30.0); SODIUM LEVEL 135 MEQ/L (136-145); TOTAL PROTEIN 8.3 GM/DL (6.4-8.2)
[2020-06-30] MEDS ORDERED: MAALOX 30 ML SUSP *UDC PO PRN (23:50)
[2020-06-30] MEDS ORDERED: ACETAMINOPHEN TAB 650MG DOSE (2X325MG) PO PRN (23:50)
[2020-06-30] MEDS ORDERED: MOM 30ML SUSPENSION UDC PO PRN (23:50)
[2020-07-01 01:42] VITALS: BP 113/59
[2020-07-01] MEDS: NICOTINE 21MG/24HR 1 EA TRANSDERMAL TD SCH (08:54)
--- NOTE | 2020-07-01 11:12 | IPNPDOC ---
Text Note Date of Service The patient was seen on 07/01/20. NOTE Consult unable to be completed - I have come down to evaluate patient, however, patient is unavailable for evaluation as he is working with psychiatry - unable to step out for evaluation - Will reattempt evaluation later today/tomorrow VS,Kadeem, I+O VS, Kadeem, I+O Laboratory Tests 06/30/20 21:58 Vital Signs Date Time Temp Pulse Resp B/P (MAP) Pulse Ox O2 Delivery O2 Flow Rate FiO2 07/01/20 01:42 97.3 81 20 113/59 (77) 98 Room Air FRANTZ BRAVO MD Jul 01, 2020 11:12
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
[2020-07-01] MEDS ORDERED: OLANZapine ORAL DISINTEGRATING TAB 5MG PO PRN (11:45)
[2020-07-01 11:47] LABS: BASO % 0.4 % (0.0-1.0); EOS # 0.1 10^3/uL (0.0-0.5); EOS % 1.4 % (0.0-3.0); HEMATOCRIT 41.8 % (42.0-52.0); HEMOGLOBIN 14.7 g/dl (13.5-17.5); LYMPH # 1.8 10^3/uL (1.5-5.0); LYMPH % 32.1 % (24.0-44.0); MEAN CORPUSCULAR HEMOGLOBIN 32.9 pg (27.0-33.0); MEAN CORPUSCULAR HGB CONC 35.2 g/dl (32.0-36.5); MEAN CORPUSCULAR VOLUME 93.5 fl (80.0-96.0); MONO # 0.9 10^3/uL (0.0-0.8); MONO % 16.8 % (2.0-8.0); NEUTROPHILS # 2.7 10^3/uL (1.5-8.5); NEUTROPHILS % 49.1 % (36.0-66.0); PLATELET COUNT, AUTOMATED 193 10^3/uL (150-450); RED BLOOD COUNT 4.47 10^6/uL (4.30-6.10); WHITE BLOOD COUNT 5.6 10^3/uL (4.0-10.0)
[2020-07-01 12:21] LABS: ALBUMIN 3.7 GM/DL (3.2-5.2); ALT/SGPT 124 U/L (12-78); BILIRUBIN,DIRECT 0.3 MG/DL (0.0-0.2); BLOOD UREA NITROGEN 25 MG/DL (7-18); C REACTIVE PROTEIN QUANTITATIV 3.93 MG/DL (0.00-0.30); CARBON DIOXIDE LEVEL 28 MEQ/L (21-32); CHLORIDE LEVEL 104 MEQ/L (98-107); CREATININE FOR GFR 0.79 MG/DL (0.70-1.30); GLOMERULAR FILTRATION RATE > 60.0 (>56); GLUCOSE, FASTING 100 MG/DL (70-100); MAGNESIUM LEVEL 2.2 MG/DL (1.8-2.4); POTASSIUM SERUM 4.3 MEQ/L (3.5-5.1); SODIUM LEVEL 136 MEQ/L (136-145); TOTAL PROTEIN 7.5 GM/DL (6.4-8.2)
[2020-07-01] MEDS: OLANZapine 5 MG TAB PO SCH ×2 (12:38→21:27)
[2020-07-01 12:40] LABS: HEPATITIS B SURFACE ANTIGEN NEGATIVE (NEGATIVE)
[2020-07-01 13:08] LABS: HEPATITIS B CORE ANTIBODY IGM NEGATIVE (NEGATIVE)
[2020-07-01 13:10] LABS: HEPATITIS A ANTIBODY IGM NEGATIVE (NEGATIVE)
[2020-07-01 13:13] LABS: HEPATITIS C VIRUS ABY INDEX > 11.0 INDEX (<0.8)
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
[2020-07-01] MEDS: DIMETHICONE 2% OINTMENT(VANICREAM) 70GM TUBE TOP SCH ×2 (16:49→21:00)
[2020-07-01 18:48] VITALS: BP 118/63
[2020-07-02] MEDS: DIMETHICONE 2% OINTMENT(VANICREAM) 70GM TUBE TOP SCH ×2 (09:00→21:00)
[2020-07-02] MEDS: OLANZapine 5 MG TAB PO SCH ×2 (09:57→22:40)
[2020-07-02] MEDS: NICOTINE 21MG/24HR 1 EA TRANSDERMAL TD SCH (09:57)
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
[2020-07-02 17:38] VITALS: BP 127/68
[2020-07-03 06:43] VITALS: BP 129/78
[2020-07-03] MEDS: OLANZapine 5 MG TAB PO SCH ×2 (09:22→20:31)
[2020-07-03] MEDS: NICOTINE 21MG/24HR 1 EA TRANSDERMAL TD SCH (09:22)
[2020-07-03] MEDS: DIMETHICONE 2% OINTMENT(VANICREAM) 70GM TUBE TOP SCH ×2 (14:11→20:53)
--- NOTE | 2020-07-03 16:46 | MHIPN ---
[facility] PROGRESS NOTE DATE: 07/03/2020 The patient states that he is doing good. He says he has had no suicidal thoughts. He is not hearing any voices, and he slept good. MENTAL STATUS EXAMINATION: This patient is alert and oriented times three. Eye contact is fair. He tends to be a bit guarded. There is no formal thought disorder noted. He says his mood is good. Affect is flat. I am not eliciting any psychotic symptoms or any suicidal or homicidal thoughts. Concentration is fair. Insight and judgment are poor. DIAGNOSES: 1. Unspecified schizophrenic and other psychotic symptoms. 2. History of bipolar disorder. 3. Amphetamine use disorder. 4. Cannabis use disorder. TREATMENT PLAN: At this point, we will continue to monitor the patient for psychotic symptoms and for suicidal thoughts, stabilization, and to titrate the medication as indicated.
[2020-07-03 18:00] VITALS: BP 128/72
[2020-07-03] MEDS: traZODone 50 MG TAB PO PRN (20:30)
[2020-07-04 06:52] VITALS: BP 153/78
[2020-07-04] MEDS: NICOTINE 21MG/24HR 1 EA TRANSDERMAL TD SCH (09:23)
[2020-07-04] MEDS: OLANZapine 5 MG TAB PO SCH ×2 (09:23→20:15)
[2020-07-04] MEDS: DIMETHICONE 2% OINTMENT(VANICREAM) 70GM TUBE TOP SCH ×2 (13:55→20:45)
--- NOTE | 2020-07-04 17:23 | MHIPN ---
[facility] PROGRESS NOTE DATE: 07/04/2020 SUBJECTIVE: The patient today states that he is doing fine. He has no complaints. He says he slept well. MENTAL STATUS EXAMINATION: This patient is alert and oriented times three. Eye contact is fair. Psychomotor activity is decreased. He appears to be guarded. There is no formal thought disorder noted. His mood is okay. Affect flat. He is not suicidal or homicidal and I did not elicit any delusions or any hallucinations. Concentration fair. Insight and judgment is fair. DIAGNOSES: 1. Unspecified schizophrenic and other psychotic symptoms. 2. History of bipolar disorder. 3. Amphetamine use disorder. 4. Cannabis use disorder. TREATMENT PLAN: We will continue to monitor the patient for psychotic symptoms and any suicidal or homicidal ideations for continued resolution and we will titrate his medications as indicated.
[2020-07-04 18:20] VITALS: BP 135/88
[2020-07-04] MEDS: traZODone 50 MG TAB PO PRN (20:25)
[2020-07-04] MEDS ORDERED: traZODone 50 MG TAB PO ONE (21:35)
[2020-07-05 06:30] VITALS: BP 127/75
[2020-07-05] MEDS: NICOTINE 21MG/24HR 1 EA TRANSDERMAL TD SCH (08:37)
[2020-07-05] MEDS: OLANZapine 5 MG TAB PO SCH (08:37)
[2020-07-05] MEDS: DIMETHICONE 2% OINTMENT(VANICREAM) 70GM TUBE TOP SCH (09:00)
[2020-07-05] MEDS ORDERED: TRAZ-257 PO (10:21)
[2020-07-05] MEDS ORDERED: NICO21PAT TD (10:21)
[2020-07-05] MEDS ORDERED: OLAN5TAB PO (10:21)
--- NOTE | 2020-07-05 16:43 | MHDSPDOC ---
[facility] Discharge Summary Discharge Summary DATE OF ADMISSION: Jun 30, 2020 at 20:28 DATE OF DISCHARGE: 07/05/20 at 1022 DISCHARGE DIAGNOSES: Bipolar, current episode Depression Nicotine use disorder Stimulant use disorder Cannabis use disorder History of polysubstance use disorder Status post hood to fingers and feet REASON FOR ADMISSION: Patient is a 50 -year-old , unemployed, single male, who was admitted on 9.39 legal status on [facility] after Pt.'s sister called 911 after pt was threatening suicide .He has been using marijuana and "ernst" the past 3 days. He states that he was having auditory hallucinations, feeling suicidal and told his sister about his thoughts. His sister called 911. .He states that he has SI and AH on and off " for a long time". Says he has struggled with Depression since he was 18 years old and has been diagnosed with Bipolar Disorder. He gets counselling through [facility]. He has been non compliant with treatment plan and has not taken his psychiatric medications in 2 months CONSULTANTS INVOLVED: See Medical H + P by Hospitalist TREATMENT AND PROGRESS ON THE UNIT: Patient was admitted to the [facility] on a 9.39 legal status he was afforded the following treatment modalities: 1) Individual Therapy 2) Group Therapy 3) Medication Management 4) Milieu Therapy 5) Safe Environment HOSPITAL COURSE: Patient was admitted to [facility] on a 9.39 legal status. During his hospitalization he was started on his home medications. We discussed need for abstaining from drugs. He reports being remorseful about his actions regarding his psychotic symptoms that caused a riff between him and his sister. He reports that he has money from unemployment and he is either going to a friend's home or staying in a motel. He wants to return to [place] where he once lived, his friend is offering him a job. He wants to continue trying to reach his daughter who he will ask for assistance in housing. He denies any psychotic symptoms, no suicidal ideations or depression at this time. DISCHARGE ASSESSMENT: In today's interview, patient is alert and oriented, pts dress is appropriate. Hygiene and grooming is well-kempt. Smiles on approach and is pleasant and engaged in the interview. Denies depression and anxiety. Denies suicidal and homicidal ideation, planning or intent. Denies and is not observed with alo, psychotic symptoms of delusions, bizarre thinking, obsessions, paranoia, ruminations illogical thoughts, flight of ideas or having poor insight and judgement. Patient has normal mentation, declines further hospitalization on a voluntary status and meets criteria for discharge today. Patient encouraged to return to hospital if symptoms worsen or change and encouraged to call unit if he/she/they needs to speak to provider for questions regarding medications or care. MENTAL STATUS EXAMINATION ON DISCHARGE: Patient is a 50 -year-old , unemployed, single male, who was admitted on legal status on [facility] after Pt.'s sister called 911 after pt was threatening suicide Speech: Is fluid, conversant, normal rate, tone and volume Language skills are intact Thought processes including: linear and goal oriented Thought content: denies depression and anxiety. Denies suicidal/homicidal ideation, planning or intent. Abstract reasoning, and computation: fair Description of associations: denies, none observed Description of abnormal or psychotic thoughts: denies, none observed. Judgment: fair Insight: fair Orientation: alert and oriented to person, place, time and situation Recent and remote memory: intact Attention span and concentration: good Language: expansive Fund of knowledge: average Mood: Euthymic Mood Affect: reactive MEDICATIONS ON DISCHARGE: See Medication Reconciliation PLAN/FOLLOWUP ARRANGEMENTS: Patient is being discharged today, he is undecided where he wants to return; i.e. girlfriend's house or motel. He is following up with [facility] The amount of time spent in the coordination of care for this patient was approximately 25 minutes. ETOH/Disorder Med Rx ETOH/DRUG DISORDER RX: Offrd @ d/c & pt refused Vital Signs/I&Os Vital Signs Date Time Temp Pulse Resp B/P (MAP) Pulse Ox O2 Delivery O2 Flow Rate FiO2 07/05/20 06:30 98.2 98 18 127/75 (92) 97 Room Air Laboratory Data Microbiology Microbiology 06/30/20 Respiratory Virus Panel (PCR) (DAREN) - Final, Complete Medications Scheduled Nicotine (Nicotine Patch) 21 Mg Patch.td24, 1 PATCH TD DAILY for Nicotine withdrawal, #7 Olanzapine (Olanzapine) 5 Mg Tablet, 5 MG PO BID for Antipsychotic, #14 Trazodone HCl (Trazodone HCl) 100 Mg Tablet, 100 MG PO QPM for Insomnia, #7 Allergies Coded Allergies: Penicillins (Verified Allergy, Severe, 03/29/20) MITCHELL MONTES NP Jul 05, 2020 10:24
== END 2020-07-05 11:57 | disposition home or self-care (01) | DRG 753 ==
LOC: M ED 20:27 → M ED INP 20:28 → M PSY 07-01 01:36
PROVIDERS: ADMIT Psychiatry & Neurology Psychiatry; ATTEND Psychiatry & Neurology Psychiatry
DX: F31.30 Bipolar disorder, current episode depressed, mild or moderate severity, unspecified (principal); F17.210 Nicotine dependence, cigarettes, uncomplicated; F12.10 Cannabis abuse, uncomplicated; F15.10 Other stimulant abuse, uncomplicated; R45.851 Suicidal ideations; I10 Essential (primary) hypertension; R74.01 Elevation of levels of liver transaminase levels; F20.9 Schizophrenia, unspecified; T23.001A Burn of unspecified degree of right hand, unspecified site, initial encounter; T23.002A Burn of unspecified degree of left hand, unspecified site, initial encounter; X58.XXXA Exposure to other specified factors, initial encounter; Y92.9 Unspecified place or not applicable; Z20.822 Contact with and (suspected) exposure to COVID-19; Z91.5 Personal history of self-harm; Z56.0 Unemployment, unspecified; Z88.0 Allergy status to penicillin; Z91.14 Patient's other noncompliance with medication regimen; Z91.19 Patient's noncompliance with other medical treatment and regimen

== ENCOUNTER 2020-10-10 22:46 | Inpatient (IN) | payer OTHER ==
[~2020-10-10] VITALS: Ht 182.9 cm; Wt 68.1 kg
[~2020-10-10 22:46] MED LIST changes: +NICO21PAT TD; +OLAN1TAB16; +OLAN1TAB16 PO; -OLAN5TAB; -OLAN5TAB PO; +OMEP40CA4 PO; -OMEP40CA97 PO; +TRAZ-257 PO
[2020-10-10 23:25] LABS: HEMATOCRIT 46.4 % (42.0-52.0); HEMOGLOBIN 15.6 g/dl (13.5-17.5); MEAN CORPUSCULAR HEMOGLOBIN 32.9 pg (27.0-33.0); MEAN CORPUSCULAR HGB CONC 33.6 g/dl (32.0-36.5); MEAN CORPUSCULAR VOLUME 97.9 fl (80.0-96.0); PLATELET COUNT, AUTOMATED 232 10^3/uL (150-450); RED BLOOD COUNT 4.74 10^6/uL (4.30-6.10); WHITE BLOOD COUNT 7.5 10^3/uL (4.0-10.0)
[2020-10-11 00:07] LABS: ACETAMINOPHEN LEVEL < 2.0 UG/ML (10.0-30.0); ALBUMIN 3.7 GM/DL (3.2-5.2); ALT/SGPT 101 U/L (12-78); BILIRUBIN,DIRECT 0.2 MG/DL (0.0-0.2); BILIRUBIN,TOTAL 0.7 MG/DL (0.2-1.0); BLOOD UREA NITROGEN 19 MG/DL (7-18); CALCIUM LEVEL 8.7 MG/DL (8.5-10.1); CARBON DIOXIDE LEVEL 29 MEQ/L (21-32); CHLORIDE LEVEL 108 MEQ/L (98-107); CREATININE FOR GFR 1.04 MG/DL (0.70-1.30); ETHYL ALCOHOL (ETHANOL) < 0.003 % (0.000-0.010); GLOMERULAR FILTRATION RATE > 60.0 (>56); GLUCOSE, FASTING 94 MG/DL (70-100); POTASSIUM SERUM 4.1 MEQ/L (3.5-5.1); SALICYLATE LEVEL 2.4 MG/DL (5.0-30.0); SODIUM LEVEL 141 MEQ/L (136-145); TOTAL PROTEIN 7.3 GM/DL (6.4-8.2)
[2020-10-11 02:14] LABS: AMPHETAMINES LEVEL URINE NEGATIVE (NEGATIVE); BARBITURATES URINE NEGATIVE (NEGATIVE); BENZODIAZEPINES URINE NEGATIVE (NEGATIVE); CANNABINOIDS URINE POSITIVE (NEGATIVE); COCAINE METABOLITE URINE NEGATIVE (NEGATIVE); METHADONE URINE NEGATIVE (NEGATIVE); OPIATES URINE NEGATIVE (NEGATIVE); PHENCYCLIDINE URINE NEGATIVE (NEGATIVE)
[2020-10-11] MEDS: NICOTINE 21MG/24HR 1 EA TRANSDERMAL TD SCH (09:00)
[2020-10-11 09:30] LABS: RSV AMPLIFICATION NEGATIVE (NEGATIVE)
[2020-10-11] MEDS ORDERED: TRAZ-252 PO (12:14)
[2020-10-11] MEDS ORDERED: ARIP1TAB6 PO (12:14)
[2020-10-11] MEDS ORDERED: HOME MED LIST COMPLETE! XX SCH (12:15)
[2020-10-11] MEDS ORDERED: traZODone 50 MG TAB PO PRN (14:45)
[2020-10-11] MEDS ORDERED: MOM 30ML SUSPENSION UDC PO PRN (14:45)
[2020-10-11] MEDS ORDERED: ACETAMINOPHEN TAB 650MG DOSE (2X325MG) PO PRN (14:45)
[2020-10-11] MEDS ORDERED: MAALOX 30 ML SUSP *UDC PO PRN (14:45)
[2020-10-11 18:23] VITALS: BP 113/60
[2020-10-12 07:25] VITALS: BP 130/70
[2020-10-12] MEDS: NICOTINE 21MG/24HR 1 EA TRANSDERMAL TD SCH (09:26)
[2020-10-12] MEDS ORDERED: TRAZ-252 PO (09:44)
[2020-10-12] MEDS ORDERED: ARIP1TAB6 PO (09:44)
[2020-10-12] MEDS ORDERED: NICO21PAT TD (09:44)
--- NOTE | 2020-10-12 12:53 | HPEPDOC ---
[facility] Medical History & Physical Date of Admission Oct 11, 2020 Date of Service: Oct 12, 2020 History and Physical CHIEF COMPLAINT: Routine medical exam HISTORY OF PRESENT ILLNESS: 50-year-old male with history of active tobacco abuse family history of CAD [place] at age of 50 in his father and uncle actively st ill smoking cigarettes and is not ready to quit, manic, bipolar disorder, depression, paranoia admitted to the inpatient mental health unit. Hospitalist was asked to do a routine medical exam patient denies chest pain pressure tightness lightheadedness dizziness nausea vomiting diarrhea abdominal pain fever chills weight gain weight loss changes in appetite anorexia changes in sle ep habits changes in bowel habits dysuria urgency frequency polyphagia polydipsia bilateral upper or lower extremity weakness paresthesias rashes lymphadenopathy. No other acute complaints PAST MEDICAL HISTORY: Active smoker bipolar disorder manic depression paranoia PAST SURGICAL HISTORY: Right forearm compartment syndrome secondary to IV drug abuse jaw fracture SOCIAL HISTORY: IV drug abuse tattoos full code smokes a pack a day cigarettes refuses to quit FAMILY HISTORY: Father in his 50s with CAD [place] mother of cancer unknown type paternal uncle of CAD [place] ALLERGIES: Please see below. REVIEW OF SYSTEMS: 12 point review of systems negative aside from positive findings in HPI HOME MEDICATIONS: Please see below. PHYSICAL EXAMINATION: VITAL SIGNS: See below GENERAL APPEARANCE: Awake alert oriented to person place and time answering questions appropriately HEENT: Moist mucous membranes no JVD thyromegaly or cervical lymphadenopathy CARDIOVASCULAR: S1-S2 regular rate rhythm nondisplaced PMI LUNGS: Air entry is equal bilaterally clear to auscultation no wheezing or rales ABDOMEN: Positive bowel sounds soft nontender nondistended no rebound or guarding NEUROLOGICAL: No cyanosis clubbing or pitting edema LABORATORY DATA: See below. ASSESSMENT: 50-year-old male with history of IV drug use, active smoking a pack a day strong family history of coronary artery disease with [place] and sudden in his father and paternal uncle refuses to quit smoking refuses primary care physician follow-up as outpatient with history of manic depression bipolar disorder and paranoia admitted to the inpatient mental health unit. Bipolar disorder manic depression and paranoia managed by primary team Active tobacco use-tobacco cessation counseling provided nicotine patch History of IV drug use-outpatient referral for rehabilitation HOSPITALIST SIGNING OFF. Vital Signs Vital Signs Date Time Temp Pulse Resp B/P (MAP) Pulse Ox O2 Delivery O2 Flow Rate FiO2 10/12/20 07:25 98.5 56 14 130/70 (90) 98 Room Air Laboratory Data Labs 24H Laboratory Tests 2 10/11/20 15:19: Methicillin-Resist S.aureus DNA PCR NOT DETECTED Home Medications Scheduled Aripiprazole (Aripiprazole) 5 Mg Tablet, 5 MG PO DAILY for Mood Nicotine (Nicotine Patch) 21 Mg Patch.td24, 1 PATCH TD DAILY for Nicotine withdrawal Trazodone HCl (Trazodone HCl) 50 Mg Tablet, 50 MG PO QHS for Insomnia Allergies Coded Allergies: Penicillins (Verified Allergy, Severe, 03/29/20) A-FIB/CHADSVASC A-FIB History Current/History of A-Fib/PAF?: No Current PO Anticoag Therapy: No Age/Risk Factor Scoring CHADSVASC: CHADSVASC Response (Comments) Value Age Risk Factor Age < 65 years old 0 Gender Risk Factor Male 0 Hx of CHF No 0 Hx of HTN No 0 Hx of Stroke/TIA/or VTE No 0 Hx of Diabetes No 0 Hx of Vascular Disease No 0 Total 0 Treatment Treatment ordered: NONE ADRIANO VILLAGRAN MD Oct 12, 2020 12:53
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
== END 2020-10-12 13:15 | disposition home or self-care (01) | DRG 753 ==
LOC: M ED 22:46 → M ED INP 10-11 14:45 → M PSY 10-11 18:17
PROVIDERS: ADMIT Psychiatry & Neurology Psychiatry; ATTEND Psychiatry & Neurology Psychiatry
DX: F31.9 Bipolar disorder, unspecified (principal); Z59.0 Homelessness; Z56.0 Unemployment, unspecified; R45.851 Suicidal ideations; Z91.5 Personal history of self-harm; Z63.0 Problems in relationship with spouse or partner; I10 Essential (primary) hypertension; F17.210 Nicotine dependence, cigarettes, uncomplicated; F12.10 Cannabis abuse, uncomplicated; F15.10 Other stimulant abuse, uncomplicated; Z20.822 Contact with and (suspected) exposure to COVID-19; Z88.0 Allergy status to penicillin